=== PATIENT | female | born 1945 | race Caucasian/White ===

== ENCOUNTER 2017-05-20 21:32 | Emergency (ER) | payer MEDICARE, MEDICAID ==
[~2017-05-20] VITALS: Ht 170.2 cm; Wt 99.3 kg
[~2017-05-20 21:32] MED LIST: ALBU18HF2 IH; ASPI-1265 PO; BACL10TA PO; CLOP75TA35 PO; DOCU250C4 PO; FAMO40TA7 PO; FURO-150 PO; HYDR-3972 PO; HYDR-569 PO; METO25TA6 PO; MONT5TAB17 PO; MORP-64 PO; POLY119P2 PO; POTA10TA19 PO; PRAV40TA3 PO; TRAZ-143 PO
[2017-05-20] MEDS ORDERED: LORazepam 2 mg/ml vial IV ONE (21:45)
[2017-05-20 21:56] LABS: BASOPHILS # (AUTO) 0.1 X10'3 (0-0.2); BASOPHILS % (AUTO) 0.7 % (0-1); EOSINOPHILS # (AUTO) 0.6 X10'3 (0-0.9); EOSINOPHILS % (AUTO) 4.9 % (0-6); HEMATOCRIT 36.6 % (35.0-45.0); LYMPHOCYTES # (AUTO) 3.4 X10'3 (1.1-4.8); LYMPHOCYTES % (AUTO) 30.4 % (21-51); MEAN CORPUSCULAR HEMOGLOBIN 28.3 PG (27.0-31.0); MEAN CORPUSCULAR HGB CONC 32.9 % (33.0-36.5); MEAN CORPUSCULAR VOLUME 86.2 FL (78-98); MEAN PLATELET VOLUME 7.2 FL (7.4-10.4); MONOCYTES % (AUTO) 9.1 % (2-12); NEUTROPHILS # (AUTO) 6.2 X10'3 (1.8-7.7); NEUTROPHILS % (AUTO) 54.9 % (42-75); PLATELET COUNT 422 X10'3 (140-440); RED BLOOD COUNT 4.25 X10'6 (4.20-5.60); RED CELL DISTRIBUTION WIDTH 15.5 % (11.5-14.5); WHITE BLOOD COUNT 11.3 X10'3 (4.5-11.0)
[2017-05-20 22:07] LABS: PARTIAL THROMBOPLASTIN TIME 25 SECONDS (22-32); PROTHROMBIN TIME 10.1 SECONDS (9.0-12.0)
[2017-05-20 22:18] LABS: ALANINE AMINOTRANSFERASE 29 U/L (12-78); ALBUMIN 3.3 G/DL (3.4-5.0); ALBUMIN/GLOBULIN RATIO 0.8 (1.1-1.5); ALKALINE PHOSPHATASE 68 IU/L (46-116); ANION GAP 7 (8-16); ASPARTATE AMINO TRANSFERASE 29 U/L (10-37); BILIRUBIN,TOTAL 0.4 MG/DL (0.1-1.0); BLOOD UREA NITROGEN 16 MG/DL (7-18); BUN/CREATININE RATIO 18.6 (6.6-38.0); CALCIUM 9.1 MG/DL (8.5-10.1); CHLORIDE 103 MMOL/L (99-107); CREATININE 0.86 MG/DL (0.40-0.90); GLUCOSE 97 MG/DL (70-104); MAGNESIUM 1.8 MG/DL (1.5-2.4); POTASSIUM 3.8 MMOL/L (3.5-5.1); SODIUM 143 MMOL/L (135-145); TOTAL CARBON DIOXIDE 33.1 MMOL/L (24-32); TOTAL PROTEIN 7.5 G/DL (6.4-8.2); eGFR 65 ML/MIN
[2017-05-20] MEDS ORDERED: levoFLOXACIN 500mg tablet PO ONE (22:30)
[2017-05-20] MEDS ORDERED: LEVO750T21 PO (22:32)
[2017-05-20 22:48] VITALS: BP 148/74
== END 2017-05-20 22:49 | disposition home or self-care (01) ==
LOC: ER 21:32
DX: J06.9 Acute upper respiratory infection, unspecified (principal); I48.91 Unspecified atrial fibrillation; I50.9 Heart failure, unspecified; E78.00 Pure hypercholesterolemia, unspecified; G89.29 Other chronic pain; J44.9 Chronic obstructive pulmonary disease, unspecified; Z90.49 Acquired absence of other specified parts of digestive tract; Z90.710 Acquired absence of both cervix and uterus; Z98.62 Peripheral vascular angioplasty status; Z88.0 Allergy status to penicillin; Z88.1 Allergy status to other antibiotic agents; Z79.82 Long term (current) use of aspirin; Z79.899 Other long term (current) drug therapy
CPT/HCPCS: 36415; 71046; 80053; 83735; 83880; 84484; 85025; 85610; 85730; 93005; 96374; 99285; J2060; 99284

== ENCOUNTER 2017-06-24 16:14 | Inpatient (IN) | payer MEDICARE, MEDICAID ==
[~2017-06-24] VITALS: Ht 170.2 cm; Wt 99.1 kg
[2017-06-24 16:51] LABS: BASOPHILS % (AUTO) 0.3 % (0-1); EOSINOPHILS % (AUTO) 0.1 % (0-6); HEMATOCRIT 37.6 % (35.0-45.0); HEMOGLOBIN 12.4 g/dl (12.0-16.0); LYMPHOCYTES # (AUTO) 0.9 X10'3 (1.1-4.8); LYMPHOCYTES % (AUTO) 7.6 % (21-51); MEAN CORPUSCULAR HEMOGLOBIN 27.9 PG (27.0-31.0); MEAN CORPUSCULAR HGB CONC 32.9 % (33.0-36.5); MEAN CORPUSCULAR VOLUME 84.7 FL (78-98); MEAN PLATELET VOLUME 6.7 FL (7.4-10.4); MONOCYTES # (AUTO) 0.5 X10'3 (0-0.9); MONOCYTES % (AUTO) 3.8 % (2-12); NEUTROPHILS % (AUTO) 88.2 % (42-75); PLATELET COUNT 542 X10'3 (140-440); RED BLOOD COUNT 4.44 X10'6 (4.20-5.60); RED CELL DISTRIBUTION WIDTH 15.4 % (11.5-14.5); WHITE BLOOD COUNT 12.4 X10'3 (4.5-11.0)
[2017-06-24 17:05] LABS: PARTIAL THROMBOPLASTIN TIME 24 SECONDS (22-32); PROTHROMBIN TIME 10.7 SECONDS (9.0-12.0)
[2017-06-24] MEDS ORDERED: verapamil 2.5 mg/ml inj IV ONE ×2 (17:05→17:40)
[2017-06-24 17:06] LABS: ALANINE AMINOTRANSFERASE 32 U/L (12-78); ALBUMIN 3.2 G/DL (3.4-5.0); ALBUMIN/GLOBULIN RATIO 0.8 (1.1-1.5); ALKALINE PHOSPHATASE 73 IU/L (46-116); ANION GAP 9 (8-16); ASPARTATE AMINO TRANSFERASE 20 U/L (10-37); BILIRUBIN,TOTAL 0.6 MG/DL (0.1-1.0); BLOOD UREA NITROGEN 16 MG/DL (7-18); BUN/CREATININE RATIO 15.7 (6.6-38.0); CHLORIDE 104 MMOL/L (99-107); CREATININE 1.02 MG/DL (0.40-0.90); GLUCOSE 145 MG/DL (70-104); POTASSIUM 3.5 MMOL/L (3.5-5.1); SODIUM 144 MMOL/L (135-145); TOTAL CARBON DIOXIDE 30.8 MMOL/L (24-32); TOTAL PROTEIN 7.4 G/DL (6.4-8.2); eGFR 53 ML/MIN
[2017-06-24] MEDS ORDERED: furosemide 10 MG/1 ML 10ml inj IV ONE (17:30)
[2017-06-24] MEDS ORDERED: LORazepam 2 mg/ml vial IV ONE ×2 (17:30→18:50)
[2017-06-24 19:13] LABS: D-DIMER 0.42 MG/L FEU (0-0.50)
[2017-06-24] MEDS ORDERED: HYDROcodone/acetaminophen 10/325mg tab PO ONE (19:20)
[2017-06-24] MEDS ORDERED: ondansetron/PF 4mg/2ml inj IV PRN (20:20)
[2017-06-24] MEDS ORDERED: acetaminophen 325mg tablet PO PRN (20:20)
[2017-06-24] MEDS ORDERED: docusate sod 250mg capsule PO PRN (20:25)
[2017-06-24] MEDS ORDERED: MONTELUKAST SODIUM 5 MG PO SCH (21:00)
[2017-06-24] MEDS: HYDROcodone/acetaminophen 10/325mg tab PO SCH (21:00)
[2017-06-24] MEDS: morphine ER 15mg tablet PO SCH (21:50)
[2017-06-24] MEDS: traZODone 50mg tablet PO SCH (21:51)
[2017-06-24] MEDS: montelukast 10mg tablet PO SCH (21:58)
[2017-06-24] MEDS: levalbuterol 0.63mg/3ml nebule IH SCH (21:58)
[2017-06-25] MEDS: levalbuterol 0.63mg/3ml nebule IH SCH ×3 (03:00→14:53)
[2017-06-25 04:47] LABS: BASOPHILS # (AUTO) 0.1 X10'3 (0-0.2); BASOPHILS % (AUTO) 0.8 % (0-1); EOSINOPHILS # (AUTO) 0.2 X10'3 (0-0.9); EOSINOPHILS % (AUTO) 1.7 % (0-6); HEMATOCRIT 36.8 % (35.0-45.0); HEMOGLOBIN 12.1 g/dl (12.0-16.0); LYMPHOCYTES # (AUTO) 4.9 X10'3 (1.1-4.8); MEAN CORPUSCULAR HEMOGLOBIN 27.8 PG (27.0-31.0); MEAN CORPUSCULAR HGB CONC 32.8 % (33.0-36.5); MEAN CORPUSCULAR VOLUME 84.8 FL (78-98); MEAN PLATELET VOLUME 6.7 FL (7.4-10.4); MONOCYTES # (AUTO) 1.1 X10'3 (0-0.9); MONOCYTES % (AUTO) 8.6 % (2-12); NEUTROPHILS # (AUTO) 6.9 X10'3 (1.8-7.7); NEUTROPHILS % (AUTO) 51.9 % (42-75); PLATELET COUNT 494 X10'3 (140-440); RED BLOOD COUNT 4.34 X10'6 (4.20-5.60); RED CELL DISTRIBUTION WIDTH 15.1 % (11.5-14.5); WHITE BLOOD COUNT 13.4 X10'3 (4.5-11.0)
[2017-06-25 05:07] LABS: ALBUMIN 3.1 G/DL (3.4-5.0); ANION GAP 7 (8-16); BLOOD UREA NITROGEN 17 MG/DL (7-18); BUN/CREATININE RATIO 17.7 (6.6-38.0); CALCIUM 8.8 MG/DL (8.5-10.1); CHLORIDE 106 MMOL/L (99-107); CREATININE 0.96 MG/DL (0.40-0.90); GLUCOSE 90 MG/DL (70-104); POTASSIUM 3.3 MMOL/L (3.5-5.1); SODIUM 146 MMOL/L (135-145); TOTAL CARBON DIOXIDE 33.3 MMOL/L (24-32); eGFR 57 ML/MIN
[2017-06-25] MEDS: HYDROcodone/acetaminophen 10/325mg tab PO SCH ×4 (05:10→20:46)
[2017-06-25 05:41] LABS: CLARITY,URINE SLIGHTLY CLOUDY (Clear); COLOR,URINE YELLOW (Yellow); GLUCOSE, URINE NEGATIVE (Neg); KETONES,URINE NEGATIVE (Neg); LEUKOCYTE ESTERASE ,URINE NEGATIVE (Neg); NITRITES, URINE NEGATIVE (Neg); OCCULT BLOOD,URINE NEGATIVE (Neg); PROTEIN,URINE NEGATIVE (Neg); UROBILINOGEN,URINE 0.2 E.U/dL (0.2-1.0)
[2017-06-25 05:48] LABS: UA COLLECTION TYPE CLN CATCH MIDSTREAM
[2017-06-25 05:55] LABS: BACTERIA,URINE NONE SEEN /HPF (Neg); HYALINE CASTS 0-3 /LPF (NEGATIVE); MUCUS STRANDS FEW /LPF (Neg); RBC,URINE 0-2 /HPF (0-2); SQUAMOUS EPITHELIAL CELL,UR MODERATE /LPF (FEW); WBC,URINE 0-4 /HPF (0-4)
[2017-06-25] MEDS: budesonide 0.5mg/2ml UD nebule IH SCH ×2 (06:53→20:48)
[2017-06-25] MEDS: furosemide 20 MG/2 ML vial IV SCH (07:30)
[2017-06-25] MEDS: heparin, porcine 5000 units/ml vial SQ SCH ×2 (07:30→20:44)
[2017-06-25] MEDS: morphine ER 15mg tablet PO SCH ×2 (07:31→20:44)
[2017-06-25] MEDS: clopidogrel 75mg tablet PO SCH (07:32)
[2017-06-25] MEDS: metoprolol tartrate 12.5mg (1/2 tablet) PO SCH ×2 (07:32→20:44)
[2017-06-25] MEDS: aspirin 81mg tab.chew PO SCH (07:32)
[2017-06-25] MEDS: famotidine 20mg tablet PO SCH (07:32)
[2017-06-25] MEDS ORDERED: FAMOTIDINE PO SCH (08:00)
[2017-06-25] MEDS ORDERED: morphine ER 15mg tablet PO SCH (08:00)
[2017-06-25] MEDS: pravastatin 40mg tablet PO SCH (09:01)
[2017-06-25] MEDS ORDERED: potassium Cl 20 mEq SR tablet PO PRN (09:05)
[2017-06-25] MEDS ORDERED: magnesium Cl slow-release 64mg tablet PO PRN (09:05)
[2017-06-25] MEDS ORDERED: magnesium 2GM in 50ml NS 50 ML IV PRN (09:05)
[2017-06-25] MEDS ORDERED: magnesium 4gm in 100ml NS 100 ML IV PRN (09:05)
[2017-06-25] MEDS ORDERED: potassium Cl 40MEQ/NS 500ml 500 ML IV PRN ×2 (09:05)
[2017-06-25] MEDS: LORazepam 1 MG tablet PO PRN ×2 (09:13→18:33)
[2017-06-25] MEDS: potassium Cl 20 mEq SR tablet PO PRN ×3 (09:13→17:34)
[2017-06-25] MEDS ORDERED: albuterol 2.5 MG/3 ML nebule NEB PRN (13:00)
[2017-06-25] MEDS: methylPREDNISolone sod succ 125mg/2ml vial IV SCH ×3 (13:13→20:44)
[2017-06-25 14:51] VITALS: BP 131/74
[2017-06-25 19:00] VITALS: BP 106/57
[2017-06-25] MEDS: montelukast 10mg tablet PO SCH (20:43)
[2017-06-25] MEDS: traZODone 50mg tablet PO SCH (20:44)
[2017-06-25] MEDS: levalbuterol 1.25mg/0.5ml nebule IH SCH (20:49)
[2017-06-26 00:02] VITALS: BP 117/68
[2017-06-26] MEDS: LORazepam 1 MG tablet PO PRN (00:18)
[2017-06-26] MEDS: methylPREDNISolone sod succ 125mg/2ml vial IV SCH ×4 (01:58→19:27)
[2017-06-26] MEDS: levalbuterol 1.25mg/0.5ml nebule IH SCH ×4 (02:23→19:54)
[2017-06-26 06:01] LABS: BASOPHILS % (AUTO) 0.1 % (0-1); EOSINOPHILS % (AUTO) 0.8 % (0-6); HEMATOCRIT 37.7 % (35.0-45.0); HEMOGLOBIN 12.3 g/dl (12.0-16.0); LYMPHOCYTES # (AUTO) 0.7 X10'3 (1.1-4.8); LYMPHOCYTES % (AUTO) 12.1 % (21-51); MEAN CORPUSCULAR HEMOGLOBIN 27.9 PG (27.0-31.0); MEAN CORPUSCULAR HGB CONC 32.6 % (33.0-36.5); MEAN CORPUSCULAR VOLUME 85.6 FL (78-98); MEAN PLATELET VOLUME 7.1 FL (7.4-10.4); MONOCYTES % (AUTO) 0.6 % (2-12); NEUTROPHILS # (AUTO) 5.2 X10'3 (1.8-7.7); NEUTROPHILS % (AUTO) 86.4 % (42-75); PLATELET COUNT 512 X10'3 (140-440); RED BLOOD COUNT 4.41 X10'6 (4.20-5.60)
[2017-06-26 06:04] LABS: ANION GAP 4 (8-16); BLOOD UREA NITROGEN 15 MG/DL (7-18); BUN/CREATININE RATIO 16.1 (6.6-38.0); CALCIUM 9.8 MG/DL (8.5-10.1); CHLORIDE 104 MMOL/L (99-107); CREATININE 0.93 MG/DL (0.40-0.90); GLUCOSE 135 MG/DL (70-104); MAGNESIUM 2.2 MG/DL (1.5-2.4); POTASSIUM 5.2 MMOL/L (3.5-5.1); SODIUM 142 MMOL/L (135-145); TOTAL CARBON DIOXIDE 33.7 MMOL/L (24-32); eGFR 59 ML/MIN
[2017-06-26 07:52] VITALS: BP 129/75
[2017-06-26] MEDS: furosemide 20 MG/2 ML vial IV SCH (08:44)
[2017-06-26] MEDS: aspirin 81mg tab.chew PO SCH (08:45)
[2017-06-26] MEDS: metoprolol tartrate 12.5mg (1/2 tablet) PO SCH ×2 (08:45→19:27)
[2017-06-26] MEDS: budesonide 0.5mg/2ml UD nebule IH SCH ×2 (08:46→19:55)
[2017-06-26] MEDS: famotidine 20mg tablet PO SCH (08:46)
[2017-06-26] MEDS: morphine ER 15mg tablet PO SCH ×2 (08:46→19:27)
[2017-06-26] MEDS: clopidogrel 75mg tablet PO SCH (08:46)
[2017-06-26] MEDS: HYDROcodone/acetaminophen 10/325mg tab PO SCH ×3 (08:46→21:50)
[2017-06-26] MEDS: heparin, porcine 5000 units/ml vial SQ SCH ×2 (08:47→19:29)
[2017-06-26] MEDS: pravastatin 40mg tablet PO SCH (08:47)
[2017-06-26] MEDS ORDERED: FLU VACC QS2017-18 36MOS UP/PF 60 MCG/0.5 ML SYRINGE IMVAC ONE (10:00)
[2017-06-26 11:54] VITALS: BP 110/57
[2017-06-26 19:00] VITALS: BP 121/62
[2017-06-26] MEDS: traZODone 50mg tablet PO SCH (21:50)
[2017-06-26] MEDS: montelukast 10mg tablet PO SCH (21:51)
[2017-06-27] VITALS: BP 95/50
[2017-06-27] MEDS: methylPREDNISolone sod succ 125mg/2ml vial IV SCH ×3 (01:23→13:20)
[2017-06-27] MEDS: levalbuterol 1.25mg/0.5ml nebule IH SCH ×2 (02:12→08:25)
[2017-06-27 06:26] LABS: BASOPHILS % (AUTO) 0 % (0-1); EOSINOPHILS # (AUTO) 0.2 X10'3 (0-0.9); EOSINOPHILS % (AUTO) 1.7 % (0-6); HEMATOCRIT 37.3 % (35.0-45.0); HEMOGLOBIN 12.2 g/dl (12.0-16.0); LYMPHOCYTES # (AUTO) 0.6 X10'3 (1.1-4.8); LYMPHOCYTES % (AUTO) 6.7 % (21-51); MEAN CORPUSCULAR HEMOGLOBIN 28.1 PG (27.0-31.0); MEAN CORPUSCULAR HGB CONC 32.8 % (33.0-36.5); MEAN CORPUSCULAR VOLUME 85.6 FL (78-98); MONOCYTES # (AUTO) 0.2 X10'3 (0-0.9); NEUTROPHILS # (AUTO) 8.5 X10'3 (1.8-7.7); NEUTROPHILS % (AUTO) 89.6 % (42-75); PLATELET COUNT 495 X10'3 (140-440); RED BLOOD COUNT 4.36 X10'6 (4.20-5.60); RED CELL DISTRIBUTION WIDTH 15.1 % (11.5-14.5); WHITE BLOOD COUNT 9.4 X10'3 (4.5-11.0)
[2017-06-27 06:52] LABS: ALBUMIN 3.1 G/DL (3.4-5.0); ANION GAP 8 (8-16); BLOOD UREA NITROGEN 25 MG/DL (7-18); BUN/CREATININE RATIO 23.4 (6.6-38.0); CALCIUM 9.9 MG/DL (8.5-10.1); CHLORIDE 99 MMOL/L (99-107); CREATININE 1.07 MG/DL (0.40-0.90); GLUCOSE 139 MG/DL (70-104); MAGNESIUM 2.1 MG/DL (1.5-2.4); POTASSIUM 4.3 MMOL/L (3.5-5.1); SODIUM 138 MMOL/L (135-145); TOTAL CARBON DIOXIDE 31.1 MMOL/L (24-32); eGFR 51 ML/MIN
[2017-06-27 07:13] VITALS: BP 107/74
[2017-06-27] MEDS: furosemide 20 MG/2 ML vial IV SCH (07:31)
[2017-06-27] MEDS: HYDROcodone/acetaminophen 10/325mg tab PO SCH ×2 (07:32→13:20)
[2017-06-27] MEDS: metoprolol tartrate 12.5mg (1/2 tablet) PO SCH (07:32)
[2017-06-27] MEDS: morphine ER 15mg tablet PO SCH (07:32)
[2017-06-27] MEDS: clopidogrel 75mg tablet PO SCH (07:32)
[2017-06-27] MEDS: pravastatin 40mg tablet PO SCH (07:32)
[2017-06-27] MEDS: aspirin 81mg tab.chew PO SCH (07:32)
[2017-06-27] MEDS: heparin, porcine 5000 units/ml vial SQ SCH (07:32)
[2017-06-27] MEDS: famotidine 20mg tablet PO SCH (08:00)
[2017-06-27] MEDS: budesonide 0.5mg/2ml UD nebule IH SCH (08:25)
[2017-06-27 11:55] VITALS: BP 128/61
[2017-06-27] MEDS ORDERED: PRED10TA23 PO (12:48)
[2017-06-27] MEDS ORDERED: famotidine 20mg tablet PO ONE (21:00)
== END 2017-06-27 15:54 | disposition home or self-care (01) | DRG 189 ==
LOC: ER 16:18 → ED HOLD 22:31 → EDBEDREQ 06-25 13:15 → MED 3N 06-25 14:39
PROVIDERS: ADMIT Family Medicine; ATTEND Internal Medicine
PROC: 5A09357 Assistance with Respiratory Ventilation, Less than 24 Consecutive Hours, Continuous Positive Airway Pressure (ICD-10-PCS; 2017-06-24)
PROC: 3E0234Z Introduction of Serum, Toxoid and Vaccine into Muscle, Percutaneous Approach (ICD-10-PCS; principal; 2017-06-26)
DX: J96.21 Acute and chronic respiratory failure with hypoxia (principal); I27.20 Pulmonary hypertension, unspecified; I48.91 Unspecified atrial fibrillation; J44.1 Chronic obstructive pulmonary disease with (acute) exacerbation; J98.11 Atelectasis; I50.9 Heart failure, unspecified; E87.6 Hypokalemia; I37.0 Nonrheumatic pulmonary valve stenosis; E78.00 Pure hypercholesterolemia, unspecified; E78.5 Hyperlipidemia, unspecified; F41.9 Anxiety disorder, unspecified; I73.9 Peripheral vascular disease, unspecified; K21.9 Gastro-esophageal reflux disease without esophagitis; Z90.3 Acquired absence of stomach [part of]; Z90.710 Acquired absence of both cervix and uterus; Z90.81 Acquired absence of spleen; Z79.01 Long term (current) use of anticoagulants; Z88.0 Allergy status to penicillin; Z88.1 Allergy status to other antibiotic agents; Z87.891 Personal history of nicotine dependence; Z82.0 Family history of epilepsy and other diseases of the nervous system; Z23 Encounter for immunization
CPT/HCPCS: 36415; 71045; 71250; 80048; 80053; 81001; 83605; 83735; 83880; 84145; 84484; 85025; 85379; 85610; 85730; 87040; 87070; 93005; 93306; 94640; 94660; 94760; 96374; 99285; J1644; J1940; J2060; J2930; J7614; J7626

== ENCOUNTER 2017-07-10 11:45 | Inpatient (IN) | payer MEDICARE, MEDICAID ==
[~2017-07-10] VITALS: Ht 170.2 cm; Wt 70.8 kg
[~2017-07-10 11:45] MED LIST changes: -HYDR-569 PO; +PRED10TA23 PO
[2017-07-10] MEDS ORDERED: aspirin 81mg tab.chew PO ONE (11:50)
[2017-07-10] MEDS ORDERED: verapamil 2.5 mg/ml inj IV ONE (11:50)
[2017-07-10 12:15] LABS: BASOPHILS % (AUTO) 0.1 % (0-1); EOSINOPHILS # (AUTO) 0.1 X10'3 (0-0.9); EOSINOPHILS % (AUTO) 0.7 % (0-6); HEMATOCRIT 41.5 % (35.0-45.0); HEMOGLOBIN 13.5 g/dl (12.0-16.0); LYMPHOCYTES # (AUTO) 0.8 X10'3 (1.1-4.8); LYMPHOCYTES % (AUTO) 7.1 % (21-51); MEAN CORPUSCULAR HEMOGLOBIN 27.7 PG (27.0-31.0); MEAN CORPUSCULAR HGB CONC 32.5 % (33.0-36.5); MEAN CORPUSCULAR VOLUME 85.3 FL (78-98); MEAN PLATELET VOLUME 6.8 FL (7.4-10.4); MONOCYTES # (AUTO) 0.3 X10'3 (0-0.9); MONOCYTES % (AUTO) 2.3 % (2-12); NEUTROPHILS # (AUTO) 10.4 X10'3 (1.8-7.7); NEUTROPHILS % (AUTO) 89.8 % (42-75); PLATELET COUNT 478 X10'3 (140-440); RED BLOOD COUNT 4.86 X10'6 (4.20-5.60); RED CELL DISTRIBUTION WIDTH 15.8 % (11.5-14.5); WHITE BLOOD COUNT 11.6 X10'3 (4.5-11.0)
[2017-07-10] MEDS ORDERED: LORazepam 2 mg/ml vial IV ONE ×2 (12:15→14:20)
[2017-07-10] MEDS ORDERED: normal saline 1000ml 1,000 ML IV ONE (12:15)
[2017-07-10 12:23] LABS: PROTHROMBIN TIME 10.3 SECONDS (9.0-12.0)
[2017-07-10] MEDS: metoprolol tartrate 1mg/ml inj IV SCH ×5 (12:26→13:28)
[2017-07-10 12:36] LABS: ALANINE AMINOTRANSFERASE 39 U/L (12-78); ALBUMIN 3.3 G/DL (3.4-5.0); ALBUMIN/GLOBULIN RATIO 0.8 (1.1-1.5); ALKALINE PHOSPHATASE 68 IU/L (46-116); ANION GAP 11 (8-16); ASPARTATE AMINO TRANSFERASE 28 U/L (10-37); BILIRUBIN,TOTAL 0.8 MG/DL (0.1-1.0); BLOOD UREA NITROGEN 19 MG/DL (7-18); BUN/CREATININE RATIO 17.1 (6.6-38.0); CALCIUM 9.4 MG/DL (8.5-10.1); CHLORIDE 100 MMOL/L (99-107); CREATININE 1.11 MG/DL (0.40-0.90); GLUCOSE 130 MG/DL (70-104); MAGNESIUM 1.8 MG/DL (1.5-2.4); POTASSIUM 3.6 MMOL/L (3.5-5.1); SODIUM 144 MMOL/L (135-145); TOTAL CARBON DIOXIDE 32.6 MMOL/L (24-32); TOTAL PROTEIN 7.3 G/DL (6.4-8.2); eGFR 48 ML/MIN
[2017-07-10] MEDS ORDERED: diltiazem-D5W 100mg/100ml 100 ML IV ONE (14:10)
[2017-07-10] MEDS ORDERED: acetaminophen 325mg tablet PO PRN (14:15)
[2017-07-10] MEDS ORDERED: ondansetron/PF 4mg/2ml inj IV PRN (14:15)
[2017-07-10] MEDS ORDERED: HYDROcodone/acetaminophen 5mg/325mg tablet PO PRN (14:15)
[2017-07-10] MEDS ORDERED: mag hydrox/Alum hydrox/simeth 30ml oral suspension PO PRN (14:15)
[2017-07-10] MEDS ORDERED: magnesium hydroxide 30ml (MOM) UD suspension PO PRN (14:15)
[2017-07-10] MEDS ORDERED: morphine 4 MG/ML inj SYRINge IV PRN (14:15)
[2017-07-10] MEDS ORDERED: baclofen 10mg tablet PO PRN (14:20)
[2017-07-10] MEDS ORDERED: docusate sod 250mg capsule PO PRN (14:20)
[2017-07-10] MEDS ORDERED: albuterol 2.5 MG/3 ML nebule NEB PRN (14:30)
[2017-07-10] MEDS: normal saline 1000ml 1,000 ML IV SCH ×2 (15:00→19:55)
[2017-07-10] MEDS ORDERED: methylPREDNISolone sod succ 125mg/2ml vial IV ONE (15:15)
[2017-07-10] MEDS ORDERED: CefTRIAXone/D5W-Rocephin 1gm 50 ML IV SCH (15:20)
[2017-07-10] MEDS ORDERED: iohexol 350MG/ML 100ml bottle IV ONE (15:49)
[2017-07-10 17:20] VITALS: BP 126/66
[2017-07-10 18:00] VITALS: BP 126/66
[2017-07-10 18:10] LABS: D-DIMER 0.41 MG/L FEU (0-0.50)
[2017-07-10 19:00] VITALS: BP 101/55
[2017-07-10] MEDS: metoprolol tartrate 25mg tablet PO SCH (19:35)
[2017-07-10] MEDS: potassium Cl 20 mEq SR tablet PO SCH (19:35)
[2017-07-10] MEDS: docusate sod 100mg capsule PO SCH (19:35)
[2017-07-10] MEDS: heparin, porcine 5000 units/ml vial SQ SCH (19:36)
[2017-07-10] MEDS: morphine ER 15mg tablet PO SCH (19:36)
[2017-07-10] MEDS: ipratropium/albuterol 3ml nebule NEB SCH ×2 (19:40→23:00)
[2017-07-10 21:00] VITALS: BP 112/52
[2017-07-10] MEDS ORDERED: HYDROcodone/acetaminophen 10/325mg tab PO SCH (21:00)
[2017-07-10] MEDS ORDERED: methylPREDNISolone sod succ 125mg/2ml vial IV SCH (21:00)
[2017-07-10] MEDS: montelukast 10mg tablet PO SCH (21:15)
[2017-07-10] MEDS: traZODone 50mg tablet PO SCH (21:16)
[2017-07-10 22:00] VITALS: BP 117/51
[2017-07-10 23:00] VITALS: BP 105/93
[2017-07-11] VITALS (12 sets, daily range): BP systolic 93–142; BP diastolic 45–108
[2017-07-11] MEDS: ipratropium/albuterol 3ml nebule NEB SCH ×7 (03:00→23:35)
[2017-07-11 05:11] LABS: BASOPHILS % (AUTO) 0.1 % (0-1); EOSINOPHILS # (AUTO) 0.2 X10'3 (0-0.9); EOSINOPHILS % (AUTO) 1.8 % (0-6); HEMATOCRIT 38.4 % (35.0-45.0); HEMOGLOBIN 12.6 g/dl (12.0-16.0); LYMPHOCYTES # (AUTO) 0.5 X10'3 (1.1-4.8); LYMPHOCYTES % (AUTO) 5.1 % (21-51); MEAN CORPUSCULAR HEMOGLOBIN 27.8 PG (27.0-31.0); MEAN CORPUSCULAR HGB CONC 32.7 % (33.0-36.5); MEAN CORPUSCULAR VOLUME 84.9 FL (78-98); MEAN PLATELET VOLUME 7.1 FL (7.4-10.4); MONOCYTES # (AUTO) 0.3 X10'3 (0-0.9); MONOCYTES % (AUTO) 2.9 % (2-12); NEUTROPHILS # (AUTO) 8.7 X10'3 (1.8-7.7); NEUTROPHILS % (AUTO) 90.1 % (42-75); PLATELET COUNT 457 X10'3 (140-440); RED BLOOD COUNT 4.53 X10'6 (4.20-5.60); RED CELL DISTRIBUTION WIDTH 16.1 % (11.5-14.5); WHITE BLOOD COUNT 9.6 X10'3 (4.5-11.0)
[2017-07-11 05:14] LABS: PROTHROMBIN TIME 10.8 SECONDS (9.0-12.0)
[2017-07-11 05:22] LABS: ALBUMIN 2.9 G/DL (3.4-5.0); ANION GAP 12 (8-16); BLOOD UREA NITROGEN 25 MG/DL (7-18); BUN/CREATININE RATIO 19.4 (6.6-38.0); CALCIUM 9.5 MG/DL (8.5-10.1); CHLORIDE 102 MMOL/L (99-107); CREATININE 1.29 MG/DL (0.40-0.90); GLUCOSE 147 MG/DL (70-104); MAGNESIUM 2.1 MG/DL (1.5-2.4); POTASSIUM 3.7 MMOL/L (3.5-5.1); SODIUM 144 MMOL/L (135-145); TOTAL CARBON DIOXIDE 29.8 MMOL/L (24-32); eGFR 41 ML/MIN
[2017-07-11] MEDS ORDERED: furosemide 20MG tablet PO SCH (08:00)
[2017-07-11] MEDS: polyethylene glycol 3350 17gm powd pack PO SCH (08:00)
[2017-07-11] MEDS ORDERED: famotidine 20mg tablet PO SCH (08:00)
[2017-07-11] MEDS: docusate sod 100mg capsule PO SCH (08:00)
[2017-07-11] MEDS ORDERED: aspirin 81mg tab.chew PO SCH (08:00)
[2017-07-11] MEDS: pantoprazole 40 MG vial IV SCH (08:43)
[2017-07-11] MEDS: azithromycin/NS 500mg/250ml 250 ML IV SCH (08:54)
[2017-07-11] MEDS: potassium Cl 20 mEq SR tablet PO SCH ×2 (08:56→19:44)
[2017-07-11] MEDS: metoprolol tartrate 25mg tablet PO SCH ×2 (08:57→19:44)
[2017-07-11] MEDS: clopidogrel 75mg tablet PO SCH (08:59)
[2017-07-11] MEDS: morphine ER 15mg tablet PO SCH (08:59)
[2017-07-11] MEDS: heparin, porcine 5000 units/ml vial SQ SCH ×2 (09:00→19:45)
[2017-07-11] MEDS: normal saline 1000ml 1,000 ML IV SCH (09:04)
[2017-07-11] MEDS: methylPREDNISolone sod succ 125mg/2ml vial IV SCH (09:06)
[2017-07-11] MEDS: HYDROcodone/acetaminophen 10/325mg tab PO PRN ×3 (09:09→18:30)
[2017-07-11] MEDS: pravastatin 40mg tablet PO SCH (10:14)
[2017-07-11] MEDS ORDERED: diltiazem-D5W 100mg/100ml 100 ML IV SCH (10:45)
[2017-07-11] MEDS ORDERED: docusate sod 100mg capsule PO PRN (10:45)
[2017-07-11] MEDS ORDERED: loperamide 2mg capsule PO ONE (11:00)
[2017-07-11] MEDS: lactobacillus rhamnosus 10,000 MMU CELLS/CAPSULE PO SCH (19:44)
[2017-07-11] MEDS: montelukast 10mg tablet PO SCH (21:25)
[2017-07-11] MEDS: traZODone 50mg tablet PO SCH (21:25)
[2017-07-11] MEDS: LORazepam 0.5 MG tablet PO PRN (21:28)
[2017-07-12] VITALS (10 sets, daily range): BP systolic 91–136; BP diastolic 39–76
[2017-07-12] MEDS: ipratropium/albuterol 3ml nebule NEB SCH ×6 (02:57→23:06)
[2017-07-12] MEDS: potassium Cl 20 mEq SR tablet PO SCH ×2 (07:18→19:31)
[2017-07-12] MEDS: heparin, porcine 5000 units/ml vial SQ SCH ×2 (07:18→19:35)
[2017-07-12] MEDS: methylPREDNISolone sod succ 125mg/2ml vial IV SCH ×2 (07:18→19:30)
[2017-07-12] MEDS: metoprolol tartrate 25mg tablet PO SCH ×2 (07:18→19:30)
[2017-07-12] MEDS: pantoprazole 40 MG vial IV SCH (07:18)
[2017-07-12] MEDS: clopidogrel 75mg tablet PO SCH (07:19)
[2017-07-12] MEDS: lactobacillus rhamnosus 10,000 MMU CELLS/CAPSULE PO SCH ×2 (07:19→19:31)
[2017-07-12] MEDS: pravastatin 40mg tablet PO SCH (07:19)
[2017-07-12] MEDS: HYDROcodone/acetaminophen 10/325mg tab PO PRN ×3 (07:19→19:57)
[2017-07-12] MEDS: azithromycin/NS 500mg/250ml 250 ML IV SCH (07:20)
[2017-07-12] MEDS: polyethylene glycol 3350 17gm powd pack PO SCH (07:29)
[2017-07-12] MEDS: LORazepam 0.5 MG tablet PO PRN ×2 (08:55→17:00)
[2017-07-12 09:00] LABS: BASOPHILS % (AUTO) 0 % (0-1); EOSINOPHILS # (AUTO) 0.2 X10'3 (0-0.9); EOSINOPHILS % (AUTO) 1.2 % (0-6); HEMATOCRIT 35.4 % (35.0-45.0); HEMOGLOBIN 11.5 g/dl (12.0-16.0); LYMPHOCYTES % (AUTO) 7.2 % (21-51); MEAN CORPUSCULAR HEMOGLOBIN 27.7 PG (27.0-31.0); MEAN CORPUSCULAR HGB CONC 32.5 % (33.0-36.5); MEAN CORPUSCULAR VOLUME 85.2 FL (78-98); MEAN PLATELET VOLUME 7.2 FL (7.4-10.4); MONOCYTES # (AUTO) 0.6 X10'3 (0-0.9); MONOCYTES % (AUTO) 4.4 % (2-12); NEUTROPHILS # (AUTO) 11.8 X10'3 (1.8-7.7); NEUTROPHILS % (AUTO) 87.2 % (42-75); PLATELET COUNT 405 X10'3 (140-440); RED BLOOD COUNT 4.16 X10'6 (4.20-5.60); RED CELL DISTRIBUTION WIDTH 15.9 % (11.5-14.5); WHITE BLOOD COUNT 13.5 X10'3 (4.5-11.0)
[2017-07-12 09:19] LABS: ALBUMIN 2.7 G/DL (3.4-5.0); ANION GAP 6 (8-16); BLOOD UREA NITROGEN 27 MG/DL (7-18); BUN/CREATININE RATIO 27.6 (6.6-38.0); CALCIUM 9.2 MG/DL (8.5-10.1); CHLORIDE 102 MMOL/L (99-107); CREATININE 0.98 MG/DL (0.40-0.90); GLUCOSE 184 MG/DL (70-104); POTASSIUM 4.4 MMOL/L (3.5-5.1); SODIUM 139 MMOL/L (135-145); TOTAL CARBON DIOXIDE 31.2 MMOL/L (24-32); eGFR 56 ML/MIN
[2017-07-12] MEDS: diltiazem SR 60mg capsule (twice daily) PO SCH (19:30)
[2017-07-12] MEDS: traZODone 50mg tablet PO SCH (22:09)
[2017-07-12] MEDS: montelukast 10mg tablet PO SCH (22:10)
[2017-07-13] MEDS: LORazepam 0.5 MG tablet PO PRN ×3 (00:26→18:06)
[2017-07-13 02:00] VITALS: BP 132/46
[2017-07-13] MEDS: ipratropium/albuterol 3ml nebule NEB SCH ×6 (03:18→23:00)
[2017-07-13] MEDS: HYDROcodone/acetaminophen 10/325mg tab PO PRN ×3 (03:43→23:45)
[2017-07-13 06:50] VITALS: BP 97/55
[2017-07-13] MEDS ORDERED: normal saline 1000ml 1,000 ML IVB ONE (07:43)
[2017-07-13] MEDS: normal saline 1000ml 1,000 ML IV SCH ×3 (07:43→21:29)
[2017-07-13] MEDS: pravastatin 40mg tablet PO SCH (08:00)
[2017-07-13] MEDS: diltiazem SR 60mg capsule (twice daily) PO SCH ×2 (08:00→21:00)
[2017-07-13] MEDS: metoprolol tartrate 25mg tablet PO SCH ×2 (08:00→11:33)
[2017-07-13] MEDS: potassium Cl 20 mEq SR tablet PO SCH ×2 (08:00→20:00)
[2017-07-13] MEDS: heparin, porcine 5000 units/ml vial SQ SCH ×2 (08:59→21:00)
[2017-07-13] MEDS: methylPREDNISolone sod succ 125mg/2ml vial IV SCH ×2 (09:00→21:02)
[2017-07-13] MEDS: pantoprazole 40 MG vial IV SCH (09:06)
[2017-07-13] MEDS: lactobacillus rhamnosus 10,000 MMU CELLS/CAPSULE PO SCH ×2 (09:07→21:02)
[2017-07-13] MEDS: clopidogrel 75mg tablet PO SCH (09:08)
[2017-07-13] MEDS: azithromycin/NS 500mg/250ml 250 ML IV SCH (09:11)
[2017-07-13 11:00] VITALS: BP 122/65
[2017-07-13 15:00] VITALS: BP 127/70
[2017-07-13 19:00] VITALS: BP 111/91
[2017-07-13] MEDS: traZODone 50mg tablet PO SCH (20:56)
[2017-07-13] MEDS: montelukast 10mg tablet PO SCH (21:01)
[2017-07-13] MEDS: morphine 4 MG/ML inj SYRINge IV PRN (21:23)
[2017-07-13 23:00] VITALS: BP 101/72
[2017-07-14] MEDS ORDERED: digoxin 250mcg/ml 2ml ampule IV ONE (02:40)
[2017-07-14 03:00] VITALS: BP 137/71
[2017-07-14] MEDS: ipratropium/albuterol 3ml nebule NEB SCH ×6 (03:51→23:25)
[2017-07-14 06:30] VITALS: BP 144/56
[2017-07-14] MEDS: potassium Cl 20 mEq SR tablet PO SCH ×2 (08:00→20:57)
[2017-07-14 08:51] LABS: BASOPHILS % (AUTO) 0.1 % (0-1); EOSINOPHILS % (AUTO) 0 % (0-6); HEMATOCRIT 37.1 % (35.0-45.0); LYMPHOCYTES # (AUTO) 0.4 X10'3 (1.1-4.8); LYMPHOCYTES % (AUTO) 4.6 % (21-51); MEAN CORPUSCULAR HEMOGLOBIN 27.5 PG (27.0-31.0); MEAN CORPUSCULAR HGB CONC 32.5 % (33.0-36.5); MEAN CORPUSCULAR VOLUME 84.9 FL (78-98); MEAN PLATELET VOLUME 7.4 FL (7.4-10.4); MONOCYTES # (AUTO) 0.2 X10'3 (0-0.9); NEUTROPHILS # (AUTO) 7.6 X10'3 (1.8-7.7); NEUTROPHILS % (AUTO) 93.3 % (42-75); PLATELET COUNT 446 X10'3 (140-440); RED BLOOD COUNT 4.37 X10'6 (4.20-5.60); RED CELL DISTRIBUTION WIDTH 14.4 % (11.5-14.5); WHITE BLOOD COUNT 8.2 X10'3 (4.5-11.0)
[2017-07-14 08:57] LABS: ALANINE AMINOTRANSFERASE 43 U/L (12-78); ALBUMIN 2.8 G/DL (3.4-5.0); ALBUMIN/GLOBULIN RATIO 0.8 (1.1-1.5); ALKALINE PHOSPHATASE 57 IU/L (46-116); ANION GAP 7 (8-16); ASPARTATE AMINO TRANSFERASE 22 U/L (10-37); BILIRUBIN,TOTAL 0.6 MG/DL (0.1-1.0); BLOOD UREA NITROGEN 25 MG/DL (7-18); CALCIUM 9.3 MG/DL (8.5-10.1); CHLORIDE 104 MMOL/L (99-107); CREATININE 0.96 MG/DL (0.40-0.90); GLUCOSE 196 MG/DL (70-104); POTASSIUM 4.4 MMOL/L (3.5-5.1); SODIUM 141 MMOL/L (135-145); TOTAL CARBON DIOXIDE 30.2 MMOL/L (24-32); TOTAL PROTEIN 6.4 G/DL (6.4-8.2); eGFR 57 ML/MIN
[2017-07-14] MEDS: methylPREDNISolone sod succ 125mg/2ml vial IV SCH ×2 (09:08→20:54)
[2017-07-14] MEDS: azithromycin/NS 500mg/250ml 250 ML IV SCH (09:08)
[2017-07-14] MEDS: diltiazem SR 60mg capsule (twice daily) PO SCH ×2 (09:08→20:56)
[2017-07-14] MEDS: pantoprazole 40 MG vial IV SCH (09:08)
[2017-07-14] MEDS: LORazepam 0.5 MG tablet PO PRN ×2 (09:08→15:47)
[2017-07-14] MEDS: clopidogrel 75mg tablet PO SCH (09:08)
[2017-07-14] MEDS: metoprolol tartrate 25mg tablet PO SCH ×2 (09:09→20:58)
[2017-07-14] MEDS: lactobacillus rhamnosus 10,000 MMU CELLS/CAPSULE PO SCH ×2 (09:10→20:55)
[2017-07-14] MEDS: heparin, porcine 5000 units/ml vial SQ SCH ×2 (09:17→21:00)
[2017-07-14] MEDS: HYDROcodone/acetaminophen 10/325mg tab PO PRN ×3 (09:27→20:56)
[2017-07-14] MEDS: pravastatin 40mg tablet PO SCH (09:31)
[2017-07-14 11:00] VITALS: BP 132/50
[2017-07-14 15:00] VITALS: BP 144/69
[2017-07-14 19:00] VITALS: BP 104/50
[2017-07-14] MEDS: normal saline 1000ml 1,000 ML IV SCH (20:30)
[2017-07-14] MEDS: traZODone 50mg tablet PO SCH (20:58)
[2017-07-14] MEDS: montelukast 10mg tablet PO SCH (20:58)
[2017-07-14 23:00] VITALS: BP 138/53
[2017-07-15] MEDS: morphine 4 MG/ML inj SYRINge IV PRN (02:41)
[2017-07-15 03:00] VITALS: BP 139/68
[2017-07-15] MEDS: ipratropium/albuterol 3ml nebule NEB SCH ×3 (03:24→11:55)
[2017-07-15] MEDS: normal saline 1000ml 1,000 ML IV SCH (03:57)
[2017-07-15] MEDS: HYDROcodone/acetaminophen 10/325mg tab PO PRN ×2 (05:20→11:43)
[2017-07-15] MEDS: LORazepam 0.5 MG tablet PO PRN (05:24)
[2017-07-15 07:00] VITALS: BP 153/62
[2017-07-15] MEDS ORDERED: pantoprazole 40mg Tablet.DR PO SCH (07:30)
[2017-07-15] MEDS ORDERED: azithromycin 250mg tablet PO SCH (08:00)
[2017-07-15] MEDS: lactobacillus rhamnosus 10,000 MMU CELLS/CAPSULE PO SCH (08:07)
[2017-07-15] MEDS: potassium Cl 20 mEq SR tablet PO SCH (08:07)
[2017-07-15] MEDS: metoprolol tartrate 25mg tablet PO SCH (08:07)
[2017-07-15] MEDS: diltiazem SR 60mg capsule (twice daily) PO SCH (08:07)
[2017-07-15] MEDS: clopidogrel 75mg tablet PO SCH (08:07)
[2017-07-15] MEDS: heparin, porcine 5000 units/ml vial SQ SCH (08:09)
[2017-07-15] MEDS: methylPREDNISolone sod succ 125mg/2ml vial IV SCH (08:09)
[2017-07-15] MEDS: pravastatin 40mg tablet PO SCH (08:40)
[2017-07-15 11:00] VITALS: BP_SYST 120; BP_SYST 220; BP_DIAS 52
== END 2017-07-15 19:14 | DRG 308 ==
LOC: ER 11:46 → ED HOLD 14:13 → UNDOADMIN 14:13 → PCU 3S 17:00
PROVIDERS: ADMIT Family Medicine; ATTEND Family Medicine
DX: I48.91 Unspecified atrial fibrillation (principal); I50.33 Acute on chronic diastolic (congestive) heart failure; J44.1 Chronic obstructive pulmonary disease with (acute) exacerbation; E78.00 Pure hypercholesterolemia, unspecified; F41.9 Anxiety disorder, unspecified; G89.29 Other chronic pain; M54.9 Dorsalgia, unspecified; I35.0 Nonrheumatic aortic (valve) stenosis; Z79.01 Long term (current) use of anticoagulants; Z90.710 Acquired absence of both cervix and uterus; Z90.81 Acquired absence of spleen; Z90.49 Acquired absence of other specified parts of digestive tract; Z95.5 Presence of coronary angioplasty implant and graft; Z88.0 Allergy status to penicillin; Z88.1 Allergy status to other antibiotic agents; Z79.82 Long term (current) use of aspirin; Z79.02 Long term (current) use of antithrombotics/antiplatelets; Z79.899 Other long term (current) drug therapy; Z87.11 Personal history of peptic ulcer disease; Z87.891 Personal history of nicotine dependence
CPT/HCPCS: 36415; 71045; 71250; 80048; 80053; 83605; 83735; 83880; 84484; 85025; 85379; 85610; 87040; 87070; 93005; 94640; 94760; 96374; 96375; 97116; 97161; 99285; A4620; A6258; C9113; J0456; J0696; J1160; J1644; J2060; J2270; J2930; J3490; J7030; Q9967

== ENCOUNTER 2017-09-12 19:23 | Emergency (ER) | payer MEDICARE, MEDICAID ==
[~2017-09-12] VITALS: Ht 170.2 cm; Wt 66.8 kg
[~2017-09-12 19:23] MED LIST changes: -ASPI-1265 PO; -BACL10TA PO; +DICL100G15 TOP; -DOCU250C4 PO; -HYDR-3972 PO; +HYDR-3973; +LEVA0.6319 NEB; +META800T87 PO; -MORP-64 PO; +MORP30TA60 PO; +ONDA4TAB12 PO; +PANT40SU2 PO; -PRED10TA23 PO; +PRED5TAB PO; +PROP10TA10 PO
[2017-09-12] MEDS ORDERED: LORazepam 2 mg/ml vial IV ONE (20:05)
[2017-09-12] MEDS ORDERED: ipratropium/albuterol 3ml nebule NEB ONE (20:05)
[2017-09-12] MEDS ORDERED: methylPREDNISolone sod succ 125mg/2ml vial IV ONE (20:05)
[2017-09-12 20:36] LABS: PARTIAL THROMBOPLASTIN TIME 25 SECONDS (22-32)
[2017-09-12 20:42] LABS: ALANINE AMINOTRANSFERASE 18 U/L (12-78); ALBUMIN 2.7 G/DL (3.4-5.0); ALBUMIN/GLOBULIN RATIO 0.7 (1.1-1.5); ALKALINE PHOSPHATASE 71 IU/L (46-116); ANION GAP 4 (8-16); ASPARTATE AMINO TRANSFERASE 15 U/L (10-37); BILIRUBIN,TOTAL 0.3 MG/DL (0.1-1.0); BLOOD UREA NITROGEN 15 MG/DL (7-18); BUN/CREATININE RATIO 17.4 (6.6-38.0); CALCIUM 9.3 MG/DL (8.5-10.1); CHLORIDE 103 MMOL/L (99-107); CREATININE 0.86 MG/DL (0.40-0.90); GLUCOSE 92 MG/DL (70-104); POTASSIUM 3.9 MMOL/L (3.5-5.1); SODIUM 144 MMOL/L (135-145); TOTAL CARBON DIOXIDE 37.4 MMOL/L (24-32); TOTAL PROTEIN 6.5 G/DL (6.4-8.2); eGFR 65 ML/MIN
[2017-09-12 20:46] LABS: EOSINOPHILS # (AUTO) 0.3 X10'3 (0-0.9); MEAN CORPUSCULAR HEMOGLOBIN 26.1 PG (27.0-31.0); MEAN CORPUSCULAR HGB CONC 31.8 % (33.0-36.5); MEAN PLATELET VOLUME 7.3 FL (7.4-10.4); RED BLOOD COUNT 4.22 X10'6 (4.20-5.60); WHITE BLOOD COUNT 10.9 X10'3 (4.5-11.0)
[2017-09-12 20:52] LABS: BASOPHILS % (AUTO) 0.2 % (0-1); EOSINOPHILS % (AUTO) 2.7 % (0-6); HEMATOCRIT 34.6 % (35.0-45.0); LYMPHOCYTES # (AUTO) 3.2 X10'3 (1.1-4.8); LYMPHOCYTES % (AUTO) 29.3 % (21-51); MEAN CORPUSCULAR VOLUME 81.9 FL (78-98); MONOCYTES # (AUTO) 0.7 X10'3 (0-0.9); MONOCYTES % (AUTO) 6.8 % (2-12); NEUTROPHILS # (AUTO) 6.6 X10'3 (1.8-7.7); PLATELET COUNT 492 X10'3 (140-440); RED CELL DISTRIBUTION WIDTH 18.3 % (11.5-14.5)
[2017-09-12] MEDS ORDERED: ipratropium 0.5 MG/2.5ML nebule ONE (20:59)
[2017-09-12] MEDS ORDERED: ipratropium 0.5 MG/2.5ML nebule IH ONE (21:00)
[2017-09-12 21:39] LABS: CLARITY,URINE CLEAR (Clear); COLOR,URINE YELLOW (Yellow); GLUCOSE, URINE NEGATIVE (Neg); KETONES,URINE NEGATIVE (Neg); LEUKOCYTE ESTERASE ,URINE MODERATE (Neg); NITRITES, URINE NEGATIVE (Neg); OCCULT BLOOD,URINE TRACE-LYSED (Neg); PH,URINE 5.5 (4.8-8.0); PROTEIN,URINE NEGATIVE (Neg); UA COLLECTION TYPE CLN CATCH MIDSTREAM; UROBILINOGEN,URINE 0.2 E.U/dL (0.2-1.0)
[2017-09-12 21:51] LABS: BACTERIA,URINE FEW /HPF (Neg); MUCUS STRANDS NONE SEEN /LPF (Neg); RBC,URINE 0-2 /HPF (0-2); SQUAMOUS EPITHELIAL CELL,UR FEW /LPF (FEW); WBC,URINE 0-4 /HPF (0-4)
[2017-09-12 21:52] VITALS: BP 115/50
[2017-09-12] MEDS ORDERED: FURO40TA4 PO (22:33)
[2017-09-12] MEDS ORDERED: furosemide 40mg tablet PO ONE (22:35)
== END 2017-09-12 23:08 | disposition home or self-care (01) ==
LOC: ER 19:23
DX: R60.0 Localized edema (principal); R06.02 Shortness of breath; I87.2 Venous insufficiency (chronic) (peripheral); I48.91 Unspecified atrial fibrillation; I50.9 Heart failure, unspecified; E78.00 Pure hypercholesterolemia, unspecified; G89.29 Other chronic pain; J44.9 Chronic obstructive pulmonary disease, unspecified; Z90.49 Acquired absence of other specified parts of digestive tract; Z90.710 Acquired absence of both cervix and uterus; Z88.0 Allergy status to penicillin; Z88.1 Allergy status to other antibiotic agents; Z79.899 Other long term (current) drug therapy
CPT/HCPCS: 36415; 71045; 80053; 81001; 82800; 83605; 83880; 84145; 84484; 85025; 85610; 85730; 87040; 87088; 93005; 94640; 94760; 96374; 96375; 99285; J2060; J2930

== ENCOUNTER 2017-10-24 23:02 | Inpatient (IN) | payer MEDICARE, MEDICAID ==
[~2017-10-24] VITALS: Ht 170.2 cm; Wt 100.0 kg
[~2017-10-24 23:02] MED LIST changes: -ALBU18HF2 IH; +ASPI-611 PO; +CARSR60C PO; -CLOP75TA35 PO; +LIDO5CRE2 TP; +RIVA20TA PO
[2017-10-25 01:00] LABS: CLARITY,URINE CLEAR (Clear); COLOR,URINE YELLOW (Yellow); GLUCOSE, URINE NEGATIVE (Neg); KETONES,URINE NEGATIVE (Neg); LEUKOCYTE ESTERASE ,URINE TRACE (Neg); NITRITES, URINE NEGATIVE (Neg); OCCULT BLOOD,URINE NEGATIVE (Neg); PH,URINE 5.5 (4.8-8.0); PROTEIN,URINE NEGATIVE (Neg); UROBILINOGEN,URINE 0.2 E.U/dL (0.2-1.0)
[2017-10-25 01:02] LABS: ALANINE AMINOTRANSFERASE 17 U/L (12-78); ALBUMIN 2.6 G/DL (3.4-5.0); ALBUMIN/GLOBULIN RATIO 0.6 (1.1-1.5); ALKALINE PHOSPHATASE 106 IU/L (46-116); ANION GAP 7 (8-16); ASPARTATE AMINO TRANSFERASE 15 U/L (10-37); BILIRUBIN,TOTAL 0.3 MG/DL (0.1-1.0); BLOOD UREA NITROGEN 17 MG/DL (7-18); BUN/CREATININE RATIO 14.9 (6.6-38.0); CALCIUM 9.2 MG/DL (8.5-10.1); CHLORIDE 101 MMOL/L (99-107); CREATININE 1.14 MG/DL (0.40-0.90); GLUCOSE 109 MG/DL (70-104); POTASSIUM 3.7 MMOL/L (3.5-5.1); SODIUM 140 MMOL/L (135-145); TOTAL CARBON DIOXIDE 32.3 MMOL/L (24-32); TOTAL PROTEIN 7.1 G/DL (6.4-8.2); eGFR 47 ML/MIN
[2017-10-25 01:04] LABS: UA COLLECTION TYPE VOIDED
[2017-10-25 01:08] LABS: BACTERIA,URINE 2+ /HPF (Neg); MUCUS STRANDS NONE SEEN /LPF (Neg); RBC,URINE NONE SEEN /HPF (0-2); SQUAMOUS EPITHELIAL CELL,UR MODERATE /LPF (FEW)
[2017-10-25 01:11] LABS: TROPONIN I < 0.04 NG/ML (0.0-0.05)
[2017-10-25 02:25] LABS: BASOPHILS # (AUTO) 0.1 X10'3 (0-0.2); BASOPHILS % (AUTO) 0.5 % (0-1); EOSINOPHILS # (AUTO) 0.3 X10'3 (0-0.9); EOSINOPHILS % (AUTO) 2.5 % (0-6); HEMATOCRIT 33.9 % (35.0-45.0); HEMOGLOBIN 10.7 g/dl (12.0-16.0); LYMPHOCYTES # (AUTO) 2.5 X10'3 (1.1-4.8); LYMPHOCYTES % (AUTO) 23.8 % (21-51); MEAN CORPUSCULAR HEMOGLOBIN 25.2 PG (27.0-31.0); MEAN CORPUSCULAR HGB CONC 31.5 % (33.0-36.5); MEAN CORPUSCULAR VOLUME 80.1 FL (78-98); MONOCYTES # (AUTO) 1.1 X10'3 (0-0.9); MONOCYTES % (AUTO) 10.1 % (2-12); NEUTROPHILS # (AUTO) 6.6 X10'3 (1.8-7.7); NEUTROPHILS % (AUTO) 63.1 % (42-75); PLATELET COUNT 562 X10'3 (140-440); RED BLOOD COUNT 4.23 X10'6 (4.20-5.60); RED CELL DISTRIBUTION WIDTH 17.4 % (11.5-14.5); WHITE BLOOD COUNT 10.5 X10'3 (4.5-11.0)
[2017-10-25] MEDS ORDERED: BUDE0.5A11 IH (03:28)
[2017-10-25] MEDS ORDERED: HYDROcodone/acetaminophen 5mg/325mg tablet PO PRN (04:05)
[2017-10-25] MEDS ORDERED: mag hydrox/Alum hydrox/simeth 30ml oral suspension PO PRN (04:05)
[2017-10-25] MEDS ORDERED: magnesium hydroxide 30ml (MOM) UD suspension PO PRN (04:05)
[2017-10-25] MEDS ORDERED: metoclopramide 5 mg/ml inj IV PRN (04:05)
[2017-10-25] MEDS ORDERED: diphenhydrAMINE 50 mg/ml inj IV PRN (04:05)
[2017-10-25] MEDS ORDERED: ondansetron/PF 4mg/2ml inj IV PRN (04:05)
[2017-10-25] MEDS ORDERED: acetaminophen 325mg tablet PO PRN ×2 (04:05)
[2017-10-25] MEDS ORDERED: diphenhydrAMINE 25mg capsule PO PRN (04:05)
[2017-10-25] MEDS ORDERED: bisacodyl 10mg suppository rectal RC PRN (04:05)
[2017-10-25] MEDS ORDERED: acetaminophen 650mg rectal suppository RC PRN (04:05)
[2017-10-25] MEDS ORDERED: HYDROmorphone inj. 0.5 MG/0.5 ML DISP.SYRIN IV PRN ×2 (04:05)
[2017-10-25] MEDS ORDERED: morphine 4 MG/ML inj SYRINge IV PRN ×2 (04:05)
[2017-10-25] MEDS ORDERED: CefTRIAXone/D5W-Rocephin 1gm 50 ML IV ONE (04:25)
[2017-10-25 05:10] VITALS: BP 146/56
[2017-10-25] MEDS ORDERED: cyclobenzaprine 10mg tablet PO PRN (05:15)
[2017-10-25] MEDS: methylPREDNISolone sod succ 125mg/2ml vial IV SCH ×2 (05:49→20:54)
[2017-10-25 06:15] LABS: HEMOGLOBIN A1C 6.3 % (4.5-6.2)
[2017-10-25 06:23] LABS: MAGNESIUM 1.7 MG/DL (1.5-2.4); PHOSPHORUS 3.7 MG/DL (2.3-4.5)
[2017-10-25 07:10] LABS: INR 1.1 INR; PARTIAL THROMBOPLASTIN TIME 28 SECONDS (22-32); PROTHROMBIN TIME 10.9 SECONDS (9.0-12.0)
[2017-10-25] MEDS: levalbuterol 0.63mg/3ml nebule IH SCH ×3 (07:54→20:26)
[2017-10-25] MEDS ORDERED: pravastatin 40mg tablet PO SCH (08:00)
[2017-10-25] MEDS ORDERED: montelukast 10mg tablet PO SCH (08:00)
[2017-10-25] MEDS: aspirin 81mg tablet.DR PO SCH (08:00)
[2017-10-25] MEDS ORDERED: metoprolol tartrate 25mg tablet PO SCH (08:00)
[2017-10-25] MEDS ORDERED: furosemide 10 MG/1 ML 10ml inj IV SCH (08:00)
[2017-10-25] MEDS: metoprolol tartrate 12.5mg (1/2 tablet) PO SCH ×2 (08:42→17:20)
[2017-10-25] MEDS: pantoprazole 40mg Tablet.DR PO SCH (08:42)
[2017-10-25] MEDS: rivaroxaban 20mg tablet PO SCH (08:43)
[2017-10-25] MEDS ORDERED: atorvastatin 10mg tablet PO SCH (08:44)
[2017-10-25] MEDS: docusate sod 100mg capsule PO SCH ×2 (08:44→20:54)
[2017-10-25] MEDS: azithromycin/NS 500mg/250ml 250 ML IV SCH (08:44)
[2017-10-25] MEDS: famotidine 20mg tablet PO SCH (08:44)
[2017-10-25] MEDS ORDERED: montelukast 10mg tablet PO ONE (08:45)
[2017-10-25] MEDS: lactobacillus rhamnosus 10,000 MMU CELLS/CAPSULE PO SCH ×2 (08:46→20:54)
[2017-10-25] MEDS: HYDROcodone/acetaminophen 10/325mg tab PO PRN ×3 (09:03→21:05)
[2017-10-25] MEDS ORDERED: DIGO250T77 PO (09:29)
[2017-10-25 10:00] VITALS: BP 135/69
[2017-10-25] MEDS ORDERED: budesonide 0.5mg/2ml UD nebule IH SCH ×2 (11:45→20:00)
[2017-10-25] MEDS: diltiazem CD 180mg cap (once-daily) PO SCH (16:23)
[2017-10-25] MEDS: digoxin 250mcg (0.25mg) tablet PO SCH (16:23)
[2017-10-25 18:00] VITALS: BP 127/64
[2017-10-25] MEDS: BUDESONIDE 0.25 MG/2 ML AMPUL.NEB IH SCH (20:25)
[2017-10-25] MEDS: traZODone 50mg tablet PO SCH (20:53)
[2017-10-25] MEDS: CefTRIAXone/D5W-Rocephin 1gm 50 ML IV SCH (20:53)
[2017-10-25] MEDS ORDERED: temazepam 15mg capsule PO PRN (21:00)
[2017-10-25] MEDS: morphine ER 15mg tablet PO SCH (21:19)
[2017-10-25 22:00] VITALS: BP 128/41
[2017-10-25] MEDS ORDERED: metoprolol tartrate 12.5mg (1/2 tablet) PO ONE (22:50)
[2017-10-26 02:00] VITALS: BP 132/44
[2017-10-26] MEDS: levalbuterol 0.63mg/3ml nebule IH SCH ×4 (02:38→20:30)
[2017-10-26] MEDS: HYDROcodone/acetaminophen 10/325mg tab PO PRN ×5 (04:51→20:59)
[2017-10-26 06:00] VITALS: BP 131/35
[2017-10-26 06:59] LABS: BASOPHILS % (AUTO) 0.1 % (0-1); EOSINOPHILS # (AUTO) 0.1 X10'3 (0-0.9); EOSINOPHILS % (AUTO) 1.4 % (0-6); HEMATOCRIT 35.2 % (35.0-45.0); LYMPHOCYTES # (AUTO) 1.1 X10'3 (1.1-4.8); LYMPHOCYTES % (AUTO) 12.2 % (21-51); MEAN CORPUSCULAR HEMOGLOBIN 24.9 PG (27.0-31.0); MEAN CORPUSCULAR HGB CONC 31.4 % (33.0-36.5); MEAN CORPUSCULAR VOLUME 79.2 FL (78-98); MEAN PLATELET VOLUME 7.7 FL (7.4-10.4); MONOCYTES # (AUTO) 0.1 X10'3 (0-0.9); MONOCYTES % (AUTO) 0.8 % (2-12); NEUTROPHILS # (AUTO) 7.9 X10'3 (1.8-7.7); NEUTROPHILS % (AUTO) 85.5 % (42-75); PLATELET COUNT 561 X10'3 (140-440); RED BLOOD COUNT 4.44 X10'6 (4.20-5.60); RED CELL DISTRIBUTION WIDTH 17.5 % (11.5-14.5); WHITE BLOOD COUNT 9.2 X10'3 (4.5-11.0)
[2017-10-26 07:28] LABS: ALANINE AMINOTRANSFERASE 13 U/L (12-78); ALBUMIN 2.4 G/DL (3.4-5.0); ALBUMIN/GLOBULIN RATIO 0.5 (1.1-1.5); ALKALINE PHOSPHATASE 96 IU/L (46-116); ANION GAP 6 (8-16); ASPARTATE AMINO TRANSFERASE 17 U/L (10-37); BILIRUBIN,TOTAL 0.3 MG/DL (0.1-1.0); BLOOD UREA NITROGEN 17 MG/DL (7-18); BUN/CREATININE RATIO 15.5 (6.6-38.0); CALCIUM 9.3 MG/DL (8.5-10.1); CHLORIDE 103 MMOL/L (99-107); GLUCOSE 168 MG/DL (70-104); POTASSIUM 3.3 MMOL/L (3.5-5.1); SODIUM 140 MMOL/L (135-145); TOTAL CARBON DIOXIDE 31.2 MMOL/L (24-32); eGFR 49 ML/MIN
[2017-10-26] MEDS: lactobacillus rhamnosus 10,000 MMU CELLS/CAPSULE PO SCH ×2 (07:37→19:29)
[2017-10-26] MEDS: docusate sod 100mg capsule PO SCH ×2 (07:38→19:29)
[2017-10-26] MEDS: metoprolol tartrate 12.5mg (1/2 tablet) PO SCH ×2 (07:38→19:29)
[2017-10-26] MEDS: rivaroxaban 20mg tablet PO SCH (07:38)
[2017-10-26] MEDS: famotidine 20mg tablet PO SCH (07:38)
[2017-10-26] MEDS: atorvastatin 10mg tablet PO SCH (07:39)
[2017-10-26] MEDS: diltiazem CD 180mg cap (once-daily) PO SCH (07:39)
[2017-10-26] MEDS: pantoprazole 40mg Tablet.DR PO SCH (07:39)
[2017-10-26] MEDS: morphine ER 15mg tablet PO SCH ×2 (07:39→19:30)
[2017-10-26] MEDS: aspirin 81mg tablet.DR PO SCH (07:40)
[2017-10-26] MEDS: montelukast 10mg tablet PO SCH (07:40)
[2017-10-26] MEDS: digoxin 250mcg (0.25mg) tablet PO SCH (07:40)
[2017-10-26] MEDS: methylPREDNISolone sod succ 125mg/2ml vial IV SCH ×2 (07:42→19:29)
[2017-10-26] MEDS: azithromycin/NS 500mg/250ml 250 ML IV SCH (07:46)
[2017-10-26] MEDS: furosemide 10 MG/1 ML 10ml inj IV SCH (07:58)
[2017-10-26] MEDS ORDERED: polyethylene glycol 3350 17gm powd pack PO PRN (08:00)
[2017-10-26] MEDS: BUDESONIDE 0.25 MG/2 ML AMPUL.NEB IH SCH ×2 (08:45→20:30)
[2017-10-26] MEDS: CefTRIAXone/D5W-Rocephin 1gm 50 ML IV SCH (08:59)
[2017-10-26] MEDS ORDERED: potassium Cl 40MEQ/NS 500ml 500 ML IV PRN ×2 (09:20)
[2017-10-26] MEDS ORDERED: potassium Cl 20 mEq SR tablet PO PRN (09:20)
[2017-10-26] MEDS: potassium Cl 20 mEq SR tablet PO PRN ×3 (09:49→16:50)
[2017-10-26 10:00] VITALS: BP 111/61
[2017-10-26] MEDS: levoFLOXACIN-Levaquin 500mg/D5 100 ML IV SCH (12:34)
[2017-10-26 18:00] VITALS: BP 124/53
[2017-10-26] MEDS: traZODone 50mg tablet PO SCH (21:03)
[2017-10-26 22:00] VITALS: BP 110/68
[2017-10-27] MEDS: levalbuterol 0.63mg/3ml nebule IH SCH ×3 (03:05→21:10)
[2017-10-27 06:00] VITALS: BP 140/58
[2017-10-27] MEDS: HYDROcodone/acetaminophen 10/325mg tab PO PRN ×4 (06:01→18:40)
[2017-10-27 06:05] LABS: BASOPHILS % (AUTO) 0 % (0-1); EOSINOPHILS # (AUTO) 0.2 X10'3 (0-0.9); EOSINOPHILS % (AUTO) 1.7 % (0-6); HEMATOCRIT 35.5 % (35.0-45.0); HEMOGLOBIN 11.1 g/dl (12.0-16.0); LYMPHOCYTES % (AUTO) 7.9 % (21-51); MEAN CORPUSCULAR HGB CONC 31.3 % (33.0-36.5); MEAN CORPUSCULAR VOLUME 79.9 FL (78-98); MEAN PLATELET VOLUME 7.4 FL (7.4-10.4); MONOCYTES # (AUTO) 0.2 X10'3 (0-0.9); MONOCYTES % (AUTO) 1.9 % (2-12); NEUTROPHILS # (AUTO) 10.8 X10'3 (1.8-7.7); NEUTROPHILS % (AUTO) 88.5 % (42-75); PLATELET COUNT 574 X10'3 (140-440); RED BLOOD COUNT 4.45 X10'6 (4.20-5.60); RED CELL DISTRIBUTION WIDTH 17.2 % (11.5-14.5); WHITE BLOOD COUNT 12.2 X10'3 (4.5-11.0)
[2017-10-27 06:37] LABS: ALANINE AMINOTRANSFERASE 32 U/L (12-78); ALBUMIN 2.5 G/DL (3.4-5.0); ALBUMIN/GLOBULIN RATIO 0.6 (1.1-1.5); ALKALINE PHOSPHATASE 91 IU/L (46-116); ANION GAP 2 (8-16); ASPARTATE AMINO TRANSFERASE 30 U/L (10-37); BILIRUBIN,TOTAL 0.3 MG/DL (0.1-1.0); BLOOD UREA NITROGEN 23 MG/DL (7-18); BUN/CREATININE RATIO 19.8 (6.6-38.0); CALCIUM 9.3 MG/DL (8.5-10.1); CHLORIDE 103 MMOL/L (99-107); CREATININE 1.16 MG/DL (0.40-0.90); GLUCOSE 154 MG/DL (70-104); POTASSIUM 4.5 MMOL/L (3.5-5.1); SODIUM 137 MMOL/L (135-145); TOTAL CARBON DIOXIDE 31.6 MMOL/L (24-32); TOTAL PROTEIN 6.9 G/DL (6.4-8.2); eGFR 46 ML/MIN
[2017-10-27] MEDS: K and/or MAG REPLACEMENT MC SCH (07:25)
[2017-10-27] MEDS: morphine ER 15mg tablet PO SCH ×2 (07:32→20:00)
[2017-10-27] MEDS: diltiazem CD 180mg cap (once-daily) PO SCH (07:32)
[2017-10-27] MEDS: metoprolol tartrate 12.5mg (1/2 tablet) PO SCH ×2 (07:32→20:00)
[2017-10-27] MEDS: famotidine 20mg tablet PO SCH (07:32)
[2017-10-27] MEDS: aspirin 81mg tablet.DR PO SCH (07:33)
[2017-10-27] MEDS: rivaroxaban 20mg tablet PO SCH (07:33)
[2017-10-27] MEDS: digoxin 250mcg (0.25mg) tablet PO SCH (07:33)
[2017-10-27] MEDS: pantoprazole 40mg Tablet.DR PO SCH (07:33)
[2017-10-27] MEDS: montelukast 10mg tablet PO SCH (07:34)
[2017-10-27] MEDS: docusate sod 100mg capsule PO SCH ×2 (07:34→20:00)
[2017-10-27] MEDS: lactobacillus rhamnosus 10,000 MMU CELLS/CAPSULE PO SCH ×2 (07:34→20:00)
[2017-10-27] MEDS: atorvastatin 10mg tablet PO SCH (07:34)
[2017-10-27] MEDS: methylPREDNISolone sod succ 125mg/2ml vial IV SCH ×2 (07:36→20:00)
[2017-10-27] MEDS: furosemide 10 MG/1 ML 10ml inj IV SCH (07:36)
[2017-10-27] MEDS: levoFLOXACIN-Levaquin 500mg/D5 100 ML IV SCH (07:37)
[2017-10-27] MEDS: BUDESONIDE 0.25 MG/2 ML AMPUL.NEB IH SCH ×2 (08:17→19:31)
[2017-10-27 10:00] VITALS: BP 133/32
[2017-10-27 18:00] VITALS: BP 142/43
[2017-10-27 22:00] VITALS: BP 142/54
[2017-10-27] MEDS: traZODone 50mg tablet PO SCH (22:15)
[2017-10-27] MEDS: hydrOXYzine 25 MG tablet PO PRN (22:16)
[2017-10-28] MEDS: levalbuterol 0.63mg/3ml nebule IH SCH ×2 (02:43→08:34)
[2017-10-28] MEDS: HYDROcodone/acetaminophen 10/325mg tab PO PRN ×2 (05:27→10:59)
[2017-10-28 06:00] VITALS: BP 118/57
[2017-10-28 06:18] LABS: BASOPHILS % (AUTO) 0 % (0-1); EOSINOPHILS # (AUTO) 0.1 X10'3 (0-0.9); EOSINOPHILS % (AUTO) 1.3 % (0-6); HEMATOCRIT 36.7 % (35.0-45.0); HEMOGLOBIN 11.8 g/dl (12.0-16.0); LYMPHOCYTES # (AUTO) 0.8 X10'3 (1.1-4.8); LYMPHOCYTES % (AUTO) 9.3 % (21-51); MEAN CORPUSCULAR HEMOGLOBIN 25.3 PG (27.0-31.0); MEAN CORPUSCULAR VOLUME 79.1 FL (78-98); MEAN PLATELET VOLUME 7.2 FL (7.4-10.4); MONOCYTES # (AUTO) 0.3 X10'3 (0-0.9); MONOCYTES % (AUTO) 3.4 % (2-12); NEUTROPHILS # (AUTO) 7.7 X10'3 (1.8-7.7); PLATELET COUNT 587 X10'3 (140-440); RED BLOOD COUNT 4.64 X10'6 (4.20-5.60); RED CELL DISTRIBUTION WIDTH 17.4 % (11.5-14.5); WHITE BLOOD COUNT 8.9 X10'3 (4.5-11.0)
[2017-10-28 06:37] LABS: ALANINE AMINOTRANSFERASE 35 U/L (12-78); ALBUMIN 2.5 G/DL (3.4-5.0); ALBUMIN/GLOBULIN RATIO 0.6 (1.1-1.5); ALKALINE PHOSPHATASE 90 IU/L (46-116); ANION GAP 6 (8-16); ASPARTATE AMINO TRANSFERASE 25 U/L (10-37); BILIRUBIN,TOTAL 0.4 MG/DL (0.1-1.0); BLOOD UREA NITROGEN 25 MG/DL (7-18); BUN/CREATININE RATIO 24.5 (6.6-38.0); CALCIUM 9.5 MG/DL (8.5-10.1); CHLORIDE 102 MMOL/L (99-107); CREATININE 1.02 MG/DL (0.40-0.90); GLUCOSE 169 MG/DL (70-104); POTASSIUM 4.1 MMOL/L (3.5-5.1); SODIUM 141 MMOL/L (135-145); TOTAL CARBON DIOXIDE 33.4 MMOL/L (24-32); eGFR 53 ML/MIN
[2017-10-28] MEDS: pantoprazole 40mg Tablet.DR PO SCH (07:20)
[2017-10-28] MEDS: rivaroxaban 20mg tablet PO SCH (07:21)
[2017-10-28] MEDS: docusate sod 100mg capsule PO SCH (07:21)
[2017-10-28] MEDS: lactobacillus rhamnosus 10,000 MMU CELLS/CAPSULE PO SCH (07:21)
[2017-10-28] MEDS: diltiazem CD 180mg cap (once-daily) PO SCH (07:21)
[2017-10-28] MEDS: aspirin 81mg tablet.DR PO SCH (07:22)
[2017-10-28] MEDS: digoxin 250mcg (0.25mg) tablet PO SCH (07:23)
[2017-10-28] MEDS: famotidine 20mg tablet PO SCH (07:24)
[2017-10-28] MEDS: atorvastatin 10mg tablet PO SCH (07:24)
[2017-10-28] MEDS: montelukast 10mg tablet PO SCH (07:24)
[2017-10-28] MEDS: metoprolol tartrate 12.5mg (1/2 tablet) PO SCH (07:24)
[2017-10-28] MEDS: morphine ER 15mg tablet PO SCH (07:24)
[2017-10-28] MEDS: methylPREDNISolone sod succ 125mg/2ml vial IV SCH (08:00)
[2017-10-28] MEDS: furosemide 10 MG/1 ML 10ml inj IV SCH (08:00)
[2017-10-28] MEDS: K and/or MAG REPLACEMENT MC SCH (08:00)
[2017-10-28] MEDS: BUDESONIDE 0.25 MG/2 ML AMPUL.NEB IH SCH (08:34)
[2017-10-28 10:00] VITALS: BP 123/44
[2017-10-28] MEDS: hydrOXYzine 25 MG tablet PO PRN (10:59)
[2017-10-28] MEDS ORDERED: levoFLOXACIN 250mg tablet PO SCH (11:00)
[2017-10-28] MEDS ORDERED: levoFLOXACIN 500mg tablet PO SCH (11:00)
[2017-10-28] MEDS ORDERED: PRED10TA23 PO (12:55)
[2017-10-28] MEDS ORDERED: LEVO250T58 PO (12:55)
== END 2017-10-28 13:37 | disposition home health service (06) | DRG 291 ==
LOC: ER 23:02 → ED HOLD 10-25 04:05 → ORTHO 4S 10-25 05:02
PROVIDERS: ADMIT Family Medicine; ATTEND Internal Medicine
DX: I13.0 Hypertensive heart and chronic kidney disease with heart failure and stage 1 through stage 4 chronic kidney disease, or unspecified chronic kidney disease (principal); I50.33 Acute on chronic diastolic (congestive) heart failure; J44.1 Chronic obstructive pulmonary disease with (acute) exacerbation; N17.9 Acute kidney failure, unspecified; N39.0 Urinary tract infection, site not specified; J96.10 Chronic respiratory failure, unspecified whether with hypoxia or hypercapnia; L03.116 Cellulitis of left lower limb; L03.115 Cellulitis of right lower limb; B96.89 Other specified bacterial agents as the cause of diseases classified elsewhere; E78.00 Pure hypercholesterolemia, unspecified; G89.29 Other chronic pain; I25.10 Atherosclerotic heart disease of native coronary artery without angina pectoris; I35.0 Nonrheumatic aortic (valve) stenosis; N18.9 Chronic kidney disease, unspecified; I48.2 Chronic atrial fibrillation; Z90.710 Acquired absence of both cervix and uterus; Z90.49 Acquired absence of other specified parts of digestive tract; Z95.5 Presence of coronary angioplasty implant and graft; Z79.01 Long term (current) use of anticoagulants; Z79.82 Long term (current) use of aspirin; Z88.8 Allergy status to other drugs, medicaments and biological substances; Z87.891 Personal history of nicotine dependence
CPT/HCPCS: 36415; 70450; 71045; 71250; 80053; 80162; 81001; 83036; 83605; 83735; 83880; 84100; 84484; 85025; 85610; 85730; 87070; 87077; 87088; 87186; 93970; 94640; 94760; 97162; 99285; A6212; A6213; A6250; A6449; J0456; J0696; J1940; J1956; J2930; J7614; J7626; Q0177

== ENCOUNTER 2017-12-24 20:45 | Inpatient (IN) | payer MEDICARE, MEDICAID ==
[~2017-12-24] VITALS: Ht 170.2 cm; Wt 95.7 kg
[~2017-12-24 20:45] MED LIST changes: +BUDE0.5A11 IH; -DICL100G15 TOP; +DIGO250T77 PO; -PRED5TAB PO; -PROP10TA10 PO; -TRAZ-143 PO; +TRAZ-218 PO
[2017-12-24] MEDS ORDERED: temazepam 15mg capsule PO PRN (21:00)
[2017-12-24 21:40] LABS: BASOPHILS # (AUTO) 0.1 X10'3 (0-0.2); BASOPHILS % (AUTO) 0.8 % (0-1); EOSINOPHILS # (AUTO) 0.2 X10'3 (0-0.9); EOSINOPHILS % (AUTO) 1.3 % (0-6); HEMATOCRIT 33.8 % (35.0-45.0); HEMOGLOBIN 10.6 g/dl (12.0-16.0); LYMPHOCYTES # (AUTO) 3.4 X10'3 (1.1-4.8); LYMPHOCYTES % (AUTO) 22.5 % (21-51); MEAN CORPUSCULAR HEMOGLOBIN 23.4 PG (27.0-31.0); MEAN CORPUSCULAR HGB CONC 31.3 % (33.0-36.5); MEAN PLATELET VOLUME 7.2 FL (7.4-10.4); MONOCYTES % (AUTO) 6.8 % (2-12); NEUTROPHILS # (AUTO) 10.3 X10'3 (1.8-7.7); NEUTROPHILS % (AUTO) 68.6 % (42-75); PLATELET COUNT 786 X10'3 (140-440); RED BLOOD COUNT 4.51 X10'6 (4.20-5.60); RED CELL DISTRIBUTION WIDTH 18.8 % (11.5-14.5); WHITE BLOOD COUNT 14.9 X10'3 (4.5-11.0)
[2017-12-24 21:52] LABS: INR 1.1 INR; PARTIAL THROMBOPLASTIN TIME 30 SECONDS (22-32); PROTHROMBIN TIME 10.9 SECONDS (9.0-12.0)
[2017-12-24 22:00] LABS: PLATELET ESTIMATE INCREASED
[2017-12-24 22:01] LABS: ANISOCYTOSIS 2+
[2017-12-24 22:02] LABS: HYPOCHROMASIA 1+
[2017-12-24 22:03] LABS: ACANTHOCYTES FEW; ELLIPTOCYTES FEW; TARGET CELLS 1+
[2017-12-24 22:05] LABS: ALANINE AMINOTRANSFERASE 15 U/L (12-78); ALBUMIN 2.7 G/DL (3.4-5.0); ALBUMIN/GLOBULIN RATIO 0.6 (1.1-1.5); ALKALINE PHOSPHATASE 106 IU/L (46-116); ANION GAP 5 (8-16); ASPARTATE AMINO TRANSFERASE 20 U/L (10-37); BILIRUBIN,TOTAL 0.5 MG/DL (0.1-1.0); BLOOD UREA NITROGEN 24 MG/DL (7-18); BUN/CREATININE RATIO 23.5 (6.6-38.0); CALCIUM 9.2 MG/DL (8.5-10.1); CHLORIDE 92 MMOL/L (99-107); CREATINE KINASE 53 U/L (26-192); CREATININE 1.02 MG/DL (0.40-0.90); GLUCOSE 92 MG/DL (70-104); MAGNESIUM 1.7 MG/DL (1.5-2.4); SODIUM 136 MMOL/L (135-145); TOTAL CARBON DIOXIDE 38.7 MMOL/L (24-32); TOTAL PROTEIN 7.5 G/DL (6.4-8.2); eGFR 53 ML/MIN
[2017-12-24 22:07] LABS: ACETAMINOPHEN < 2.0 UG/ML (10-30)
[2017-12-24 22:08] LABS: POTASSIUM 2.1 MMOL/L (3.5-5.1)
[2017-12-24] MEDS ORDERED: potassium Cl 20 mEq SR tablet PO ONE (22:10)
[2017-12-24] MEDS ORDERED: HYDROcodone/acetaminophen 10/325mg tab PO ONE (22:15)
[2017-12-24] MEDS: potassium 10mEq/100ml NS w/LIDOcaine (10mg/bag) IV SCH ×2 (22:22→23:20)
[2017-12-24] MEDS ORDERED: diphenhydrAMINE 50 mg/ml inj IV PRN (23:20)
[2017-12-24] MEDS ORDERED: HYDROcodone/acetaminophen 5mg/325mg tablet PO PRN (23:20)
[2017-12-24] MEDS ORDERED: acetaminophen 650mg rectal suppository RC PRN (23:20)
[2017-12-24] MEDS ORDERED: bisacodyl 10mg suppository rectal RC PRN (23:20)
[2017-12-24] MEDS ORDERED: potassium Cl 40MEQ/NS 500ml 500 ML IV PRN ×2 (23:20)
[2017-12-24] MEDS ORDERED: acetaminophen 325mg tablet PO PRN (23:20)
[2017-12-24] MEDS ORDERED: diphenhydrAMINE 25mg capsule PO PRN (23:20)
[2017-12-24] MEDS ORDERED: morphine 2 MG/ML inj. syringe IV PRN (23:20)
[2017-12-24] MEDS ORDERED: magnesium hydroxide 30ml (MOM) UD suspension PO PRN (23:20)
[2017-12-24] MEDS ORDERED: mag hydrox/Alum hydrox/simeth 30ml oral suspension PO PRN (23:20)
[2017-12-24] MEDS ORDERED: metoclopramide 5 mg/ml inj IV PRN (23:20)
[2017-12-24] MEDS ORDERED: ondansetron/PF 4mg/2ml inj IV PRN (23:20)
[2017-12-24 23:45] LABS: HEMOGLOBIN A1C 7.2 % (4.5-6.2)
[2017-12-24 23:56] LABS: PHOSPHORUS 2.8 MG/DL (2.3-4.5)
[2017-12-25] MEDS: K and/or MAG REPLACEMENT MC SCH ×2 (00:14→08:00)
[2017-12-25] MEDS: ceFAZolin 1GM/D5W- ADD-VANTAGE 50 ML IV SCH ×3 (01:38→15:59)
[2017-12-25] MEDS: morphine 2 MG/ML inj. syringe IV PRN ×3 (01:45→21:47)
[2017-12-25 06:25] LABS: CLARITY,URINE CLEAR (Clear); COLOR,URINE YELLOW (Yellow); GLUCOSE, URINE NEGATIVE (Neg); KETONES,URINE NEGATIVE (Neg); LEUKOCYTE ESTERASE ,URINE NEGATIVE (Neg); NITRITES, URINE NEGATIVE (Neg); OCCULT BLOOD,URINE NEGATIVE (Neg); PH,URINE 7.5 (4.8-8.0); PROTEIN,URINE NEGATIVE (Neg); UROBILINOGEN,URINE 0.2 E.U/dL (0.2-1.0)
[2017-12-25 06:26] LABS: UA COLLECTION TYPE VOIDED
[2017-12-25 06:31] LABS: URINE AMPHETAMINE SCREEN NEGATIVE (Neg); URINE BARBITUATE SCREEN NEGATIVE (Neg); URINE BENZODIAZEPINES SCREEN NEGATIVE (Neg); URINE CANNABINOID SCREEN NEGATIVE (Neg); URINE COCAINE SCREEN NEGATIVE (Neg); URINE METHADONE SCREEN NEGATIVE (Neg); URINE OPIATE SCREEN POSITIVE (Neg); URINE PHENCYCLIDINE SCREEN NEGATIVE (Neg)
[2017-12-25] MEDS: pantoprazole 40mg Tablet.DR PO SCH (07:11)
[2017-12-25 07:12] LABS: BASOPHILS % (AUTO) 0.1 % (0-1); EOSINOPHILS # (AUTO) 0.5 X10'3 (0-0.9); EOSINOPHILS % (AUTO) 4.3 % (0-6); HEMATOCRIT 34.1 % (35.0-45.0); HEMOGLOBIN 10.8 g/dl (12.0-16.0); LYMPHOCYTES # (AUTO) 3.2 X10'3 (1.1-4.8); LYMPHOCYTES % (AUTO) 26.1 % (21-51); MEAN CORPUSCULAR HEMOGLOBIN 23.9 PG (27.0-31.0); MEAN CORPUSCULAR HGB CONC 31.5 % (33.0-36.5); MEAN CORPUSCULAR VOLUME 75.9 FL (78-98); MEAN PLATELET VOLUME 7.4 FL (7.4-10.4); MONOCYTES # (AUTO) 1.1 X10'3 (0-0.9); NEUTROPHILS # (AUTO) 7.5 X10'3 (1.8-7.7); NEUTROPHILS % (AUTO) 60.5 % (42-75); PLATELET COUNT 771 X10'3 (140-440); RED BLOOD COUNT 4.49 X10'6 (4.20-5.60); RED CELL DISTRIBUTION WIDTH 18.5 % (11.5-14.5); WHITE BLOOD COUNT 12.3 X10'3 (4.5-11.0)
[2017-12-25] MEDS: famotidine 20mg tablet PO SCH (07:12)
[2017-12-25] MEDS: aspirin 81mg tablet.DR PO SCH (07:12)
[2017-12-25] MEDS: metoprolol tartrate 12.5mg (1/2 tablet) PO SCH ×2 (07:12→20:28)
[2017-12-25] MEDS: morphine ER 15mg tablet PO SCH ×2 (07:13→20:28)
[2017-12-25] MEDS: digoxin 250mcg (0.25mg) tablet PO SCH (07:13)
[2017-12-25] MEDS: docusate sod 100mg capsule PO SCH ×2 (07:14→20:28)
[2017-12-25] MEDS: diltiazem CD 180mg cap (once-daily) PO SCH (07:14)
[2017-12-25] MEDS: HYDROcodone/acetaminophen 10/325mg tab PO PRN ×2 (07:18→14:39)
[2017-12-25 07:34] LABS: ALANINE AMINOTRANSFERASE 15 U/L (12-78); ALBUMIN 2.5 G/DL (3.4-5.0); ALBUMIN/GLOBULIN RATIO 0.6 (1.1-1.5); ALKALINE PHOSPHATASE 97 IU/L (46-116); ANION GAP 4 (8-16); ASPARTATE AMINO TRANSFERASE 18 U/L (10-37); BILIRUBIN,TOTAL 0.5 MG/DL (0.1-1.0); BLOOD UREA NITROGEN 19 MG/DL (7-18); BUN/CREATININE RATIO 17.9 (6.6-38.0); CALCIUM 9.3 MG/DL (8.5-10.1); CHLORIDE 97 MMOL/L (99-107); CREATININE 1.06 MG/DL (0.40-0.90); GLUCOSE 105 MG/DL (70-104); SODIUM 140 MMOL/L (135-145); TOTAL CARBON DIOXIDE 39.2 MMOL/L (24-32); eGFR 51 ML/MIN
[2017-12-25] MEDS: budesonide 0.5mg/2ml UD nebule IH SCH ×2 (07:51→19:59)
[2017-12-25 08:04] LABS: POTASSIUM 2.3 MMOL/L (3.5-5.1)
[2017-12-25] MEDS: potassium Cl 20 mEq SR tablet PO PRN ×3 (08:38→20:28)
[2017-12-25 09:17] LABS: ANISOCYTOSIS 2+; PLATELET ESTIMATE INCREASED
[2017-12-25 09:18] LABS: ACANTHOCYTES FEW; ELLIPTOCYTES FEW; HYPOCHROMASIA 1+; SCHISTOCYTES FEW
[2017-12-25 09:20] LABS: POLYCHROMASIA FEW; TARGET CELLS FEW
[2017-12-25] MEDS: pravastatin 40mg tablet PO SCH (10:57)
[2017-12-25 14:30] VITALS: BP 115/50
[2017-12-25] MEDS: cyclobenzaprine 10mg tablet PO PRN (16:00)
[2017-12-25 18:00] VITALS: BP 130/64
[2017-12-25] MEDS: montelukast 10mg tablet PO SCH (20:30)
[2017-12-25] MEDS: lactobacillus rhamnosus 10,000 MMU CELLS/CAPSULE PO SCH (20:30)
[2017-12-25] MEDS: rivaroxaban 20mg tablet PO SCH (20:31)
[2017-12-25] MEDS: traZODone 50mg tablet PO SCH (21:46)
[2017-12-25 22:00] VITALS: BP 119/63
[2017-12-26] MEDS: ceFAZolin 1GM/D5W- ADD-VANTAGE 50 ML IV SCH ×3 (00:22→16:19)
[2017-12-26] MEDS: cyclobenzaprine 10mg tablet PO PRN ×2 (00:31→12:18)
[2017-12-26] MEDS: potassium Cl 20 mEq SR tablet PO PRN ×5 (01:12→21:11)
[2017-12-26] MEDS: HYDROcodone/acetaminophen 10/325mg tab PO PRN ×3 (01:18→17:06)
[2017-12-26 05:53] LABS: BASOPHILS # (AUTO) 0.1 X10'3 (0-0.2); BASOPHILS % (AUTO) 0.5 % (0-1); EOSINOPHILS # (AUTO) 0.8 X10'3 (0-0.9); EOSINOPHILS % (AUTO) 6.6 % (0-6); HEMATOCRIT 32.8 % (35.0-45.0); HEMOGLOBIN 10.4 g/dl (12.0-16.0); LYMPHOCYTES # (AUTO) 2.9 X10'3 (1.1-4.8); MEAN CORPUSCULAR HEMOGLOBIN 23.8 PG (27.0-31.0); MEAN CORPUSCULAR HGB CONC 31.7 % (33.0-36.5); MEAN CORPUSCULAR VOLUME 75.3 FL (78-98); MEAN PLATELET VOLUME 7.2 FL (7.4-10.4); MONOCYTES # (AUTO) 1.1 X10'3 (0-0.9); MONOCYTES % (AUTO) 8.9 % (2-12); NEUTROPHILS # (AUTO) 7.8 X10'3 (1.8-7.7); PLATELET COUNT 796 X10'3 (140-440); RED BLOOD COUNT 4.35 X10'6 (4.20-5.60); RED CELL DISTRIBUTION WIDTH 18.3 % (11.5-14.5); WHITE BLOOD COUNT 12.8 X10'3 (4.5-11.0)
[2017-12-26 06:00] VITALS: BP 97/58
[2017-12-26] MEDS: morphine 2 MG/ML inj. syringe IV PRN ×4 (06:02→23:10)
[2017-12-26 06:47] LABS: ALANINE AMINOTRANSFERASE 16 U/L (12-78); ALBUMIN 2.4 G/DL (3.4-5.0); ALBUMIN/GLOBULIN RATIO 0.5 (1.1-1.5); ALKALINE PHOSPHATASE 97 IU/L (46-116); ANION GAP 7 (8-16); ASPARTATE AMINO TRANSFERASE 19 U/L (10-37); BILIRUBIN,TOTAL 0.4 MG/DL (0.1-1.0); BLOOD UREA NITROGEN 15 MG/DL (7-18); BUN/CREATININE RATIO 15.6 (6.6-38.0); CHLORIDE 97 MMOL/L (99-107); CREATININE 0.96 MG/DL (0.40-0.90); GLUCOSE 99 MG/DL (70-104); POTASSIUM 3.3 MMOL/L (3.5-5.1); SODIUM 139 MMOL/L (135-145); TOTAL CARBON DIOXIDE 35.5 MMOL/L (24-32); eGFR 57 ML/MIN
[2017-12-26 07:37] LABS: ANISOCYTOSIS 2+; ELLIPTOCYTES FEW; PLATELET ESTIMATE INCREASED; TARGET CELLS FEW
[2017-12-26] MEDS: K and/or MAG REPLACEMENT MC SCH (08:00)
[2017-12-26] MEDS: budesonide 0.5mg/2ml UD nebule IH SCH ×2 (08:25→19:51)
[2017-12-26] MEDS: pantoprazole 40mg Tablet.DR PO SCH (09:07)
[2017-12-26] MEDS: diltiazem CD 180mg cap (once-daily) PO SCH (09:07)
[2017-12-26] MEDS: docusate sod 100mg capsule PO SCH ×2 (09:07→21:10)
[2017-12-26] MEDS: metoprolol tartrate 12.5mg (1/2 tablet) PO SCH ×2 (09:08→21:10)
[2017-12-26] MEDS: aspirin 81mg tablet.DR PO SCH (09:08)
[2017-12-26] MEDS: digoxin 250mcg (0.25mg) tablet PO SCH (09:08)
[2017-12-26] MEDS: lactobacillus rhamnosus 10,000 MMU CELLS/CAPSULE PO SCH ×2 (09:09→21:10)
[2017-12-26] MEDS: famotidine 20mg tablet PO SCH (09:09)
[2017-12-26] MEDS: morphine ER 15mg tablet PO SCH ×2 (09:09→21:11)
[2017-12-26] MEDS: pravastatin 40mg tablet PO SCH (09:09)
[2017-12-26 09:10] VITALS: BP 113/75
[2017-12-26 10:00] VITALS: BP 113/75
[2017-12-26 18:00] VITALS: BP 129/50
[2017-12-26] MEDS: montelukast 10mg tablet PO SCH (21:10)
[2017-12-26] MEDS: rivaroxaban 20mg tablet PO SCH (21:11)
[2017-12-26 22:00] VITALS: BP 120/60
[2017-12-26] MEDS: traZODone 50mg tablet PO SCH (22:07)
[2017-12-27] MEDS: ceFAZolin 1GM/D5W- ADD-VANTAGE 50 ML IV SCH ×3 (01:27→16:27)
[2017-12-27] MEDS: HYDROcodone/acetaminophen 10/325mg tab PO PRN ×4 (02:15→22:11)
[2017-12-27] MEDS: cyclobenzaprine 10mg tablet PO PRN ×2 (03:08→20:31)
[2017-12-27] MEDS: morphine 2 MG/ML inj. syringe IV PRN ×2 (04:19→13:47)
[2017-12-27 06:00] VITALS: BP 98/46
[2017-12-27 06:50] LABS: BASOPHILS # (AUTO) 0.1 X10'3 (0-0.2); BASOPHILS % (AUTO) 0.7 % (0-1); EOSINOPHILS # (AUTO) 0.6 X10'3 (0-0.9); EOSINOPHILS % (AUTO) 5.1 % (0-6); HEMATOCRIT 33.2 % (35.0-45.0); HEMOGLOBIN 10.5 g/dl (12.0-16.0); LYMPHOCYTES # (AUTO) 2.8 X10'3 (1.1-4.8); LYMPHOCYTES % (AUTO) 21.6 % (21-51); MEAN CORPUSCULAR HEMOGLOBIN 23.9 PG (27.0-31.0); MEAN CORPUSCULAR HGB CONC 31.7 % (33.0-36.5); MEAN CORPUSCULAR VOLUME 75.3 FL (78-98); MEAN PLATELET VOLUME 7.5 FL (7.4-10.4); MONOCYTES # (AUTO) 0.6 X10'3 (0-0.9); NEUTROPHILS # (AUTO) 8.6 X10'3 (1.8-7.7); NEUTROPHILS % (AUTO) 67.6 % (42-75); PLATELET COUNT 750 X10'3 (140-440); RED CELL DISTRIBUTION WIDTH 18.6 % (11.5-14.5); WHITE BLOOD COUNT 12.8 X10'3 (4.5-11.0)
[2017-12-27 07:04] LABS: ANISOCYTOSIS 2+; ELLIPTOCYTES 1+; HYPOCHROMASIA 1+; MICROCYTOSIS 1+; PLATELET ESTIMATE INCREASED; POLYCHROMASIA 1+; TARGET CELLS FEW
[2017-12-27 07:05] LABS: SCHISTOCYTES FEW
[2017-12-27 07:07] LABS: ALANINE AMINOTRANSFERASE 10 U/L (12-78); ALBUMIN 2.4 G/DL (3.4-5.0); ALBUMIN/GLOBULIN RATIO 0.5 (1.1-1.5); ALKALINE PHOSPHATASE 101 IU/L (46-116); ANION GAP 5 (8-16); ASPARTATE AMINO TRANSFERASE 24 U/L (10-37); BILIRUBIN,TOTAL 0.3 MG/DL (0.1-1.0); BLOOD UREA NITROGEN 14 MG/DL (7-18); BUN/CREATININE RATIO 16.3 (6.6-38.0); CALCIUM 9.3 MG/DL (8.5-10.1); CHLORIDE 98 MMOL/L (99-107); CREATININE 0.86 MG/DL (0.40-0.90); GLUCOSE 108 MG/DL (70-104); POTASSIUM 3.5 MMOL/L (3.5-5.1); SODIUM 137 MMOL/L (135-145); TOTAL CARBON DIOXIDE 34.1 MMOL/L (24-32); TOTAL PROTEIN 6.9 G/DL (6.4-8.2); eGFR 65 ML/MIN
[2017-12-27] MEDS: budesonide 0.5mg/2ml UD nebule IH SCH ×2 (07:52→19:52)
[2017-12-27] MEDS: K and/or MAG REPLACEMENT MC SCH (08:00)
[2017-12-27] MEDS: docusate sod 100mg capsule PO SCH ×2 (08:36→20:31)
[2017-12-27] MEDS: famotidine 20mg tablet PO SCH (08:36)
[2017-12-27] MEDS: diltiazem CD 180mg cap (once-daily) PO SCH (08:37)
[2017-12-27] MEDS: lactobacillus rhamnosus 10,000 MMU CELLS/CAPSULE PO SCH ×2 (08:37→20:31)
[2017-12-27] MEDS: aspirin 81mg tablet.DR PO SCH (08:37)
[2017-12-27] MEDS: morphine ER 15mg tablet PO SCH ×2 (08:37→20:31)
[2017-12-27] MEDS: metoprolol tartrate 12.5mg (1/2 tablet) PO SCH ×2 (08:37→20:31)
[2017-12-27] MEDS: digoxin 250mcg (0.25mg) tablet PO SCH (08:38)
[2017-12-27] MEDS: pantoprazole 40mg Tablet.DR PO SCH (08:40)
[2017-12-27] MEDS: pravastatin 40mg tablet PO SCH (08:40)
[2017-12-27 10:00] VITALS: BP 105/57
[2017-12-27 17:00] VITALS: BP_SYST 111; BP_SYST 112; BP_SYST 136; BP_DIAS 49; BP_DIAS 53; BP_DIAS 63
[2017-12-27 18:00] VITALS: BP 111/53
[2017-12-27 20:00] VITALS: BP 109/48
[2017-12-27] MEDS: rivaroxaban 20mg tablet PO SCH (20:31)
[2017-12-27] MEDS: montelukast 10mg tablet PO SCH (20:31)
[2017-12-27 21:23] LABS: % IRON SATURATION 5 % (11-46); IRON 20 UG/DL (49-151); TOTAL IRON BINDING CAPACITY 396 UG/DL (259-388)
[2017-12-27 22:00] VITALS: BP 109/48
[2017-12-27] MEDS: traZODone 50mg tablet PO SCH (22:11)
[2017-12-28] MEDS: ceFAZolin 1GM/D5W- ADD-VANTAGE 50 ML IV SCH (00:08)
[2017-12-28 01:42] VITALS: BP_SYST 106; BP_SYST 122; BP_SYST 136; BP_DIAS 48; BP_DIAS 69; BP_DIAS 70
[2017-12-28] MEDS: HYDROcodone/acetaminophen 10/325mg tab PO PRN ×2 (05:27→10:50)
[2017-12-28] MEDS: cyclobenzaprine 10mg tablet PO PRN (05:27)
[2017-12-28 06:00] VITALS: BP 112/32
[2017-12-28 07:18] LABS: ALANINE AMINOTRANSFERASE 11 U/L (12-78); ALBUMIN 2.3 G/DL (3.4-5.0); ALBUMIN/GLOBULIN RATIO 0.5 (1.1-1.5); ALKALINE PHOSPHATASE 107 IU/L (46-116); ANION GAP 4 (8-16); ASPARTATE AMINO TRANSFERASE 26 U/L (10-37); BILIRUBIN,TOTAL 0.3 MG/DL (0.1-1.0); BLOOD UREA NITROGEN 15 MG/DL (7-18); BUN/CREATININE RATIO 19.2 (6.6-38.0); CALCIUM 8.9 MG/DL (8.5-10.1); CHLORIDE 97 MMOL/L (99-107); CREATININE 0.78 MG/DL (0.40-0.90); GLUCOSE 108 MG/DL (70-104); POTASSIUM 3.3 MMOL/L (3.5-5.1); SODIUM 136 MMOL/L (135-145); TOTAL PROTEIN 6.9 G/DL (6.4-8.2); eGFR 73 ML/MIN
[2017-12-28 07:38] LABS: HEMATOCRIT 32.7 % (35.0-45.0); HEMOGLOBIN 10.3 g/dl (12.0-16.0); MEAN CORPUSCULAR HEMOGLOBIN 23.6 PG (27.0-31.0); MEAN CORPUSCULAR HGB CONC 31.4 % (33.0-36.5); MEAN CORPUSCULAR VOLUME 75.2 FL (78-98); MEAN PLATELET VOLUME 7.6 FL (7.4-10.4); PLATELET COUNT 748 X10'3 (140-440); RED BLOOD COUNT 4.35 X10'6 (4.20-5.60); RED CELL DISTRIBUTION WIDTH 18.5 % (11.5-14.5); WHITE BLOOD COUNT 11.3 X10'3 (4.5-11.0)
[2017-12-28 07:48] LABS: PLATELET ESTIMATE INCREASED; TOTAL CELLS COUNTED 100
[2017-12-28 07:49] LABS: ANISOCYTOSIS 2+; ELLIPTOCYTES 1+; HYPOCHROMASIA 1+; MICROCYTOSIS 1+; POLYCHROMASIA 1+; SCHISTOCYTES FEW; TARGET CELLS FEW
[2017-12-28] MEDS: metoprolol tartrate 12.5mg (1/2 tablet) PO SCH (08:00)
[2017-12-28] MEDS: K and/or MAG REPLACEMENT MC SCH (08:00)
[2017-12-28] MEDS: diltiazem CD 180mg cap (once-daily) PO SCH (08:00)
[2017-12-28] MEDS ORDERED: potassium Cl 40MEQ/NS 500ml 500 ML IV PRN ×2 (08:20)
[2017-12-28] MEDS ORDERED: potassium Cl 20 mEq SR tablet PO PRN ×2 (08:20)
[2017-12-28] MEDS: pantoprazole 40mg Tablet.DR PO SCH (08:26)
[2017-12-28] MEDS: lactobacillus rhamnosus 10,000 MMU CELLS/CAPSULE PO SCH (08:26)
[2017-12-28] MEDS: aspirin 81mg tablet.DR PO SCH (08:26)
[2017-12-28] MEDS: docusate sod 100mg capsule PO SCH (08:26)
[2017-12-28] MEDS: digoxin 250mcg (0.25mg) tablet PO SCH (08:26)
[2017-12-28] MEDS: pravastatin 40mg tablet PO SCH (08:27)
[2017-12-28] MEDS: famotidine 20mg tablet PO SCH (08:27)
[2017-12-28] MEDS: morphine ER 15mg tablet PO SCH (08:27)
[2017-12-28] MEDS: budesonide 0.5mg/2ml UD nebule IH SCH (08:33)
[2017-12-28 10:00] VITALS: BP 115/60
[2017-12-28] MEDS ORDERED: furosemide 20MG tablet PO SCH (10:20)
[2017-12-28] MEDS ORDERED: potassium Cl 20 mEq SR tablet PO STA (13:19)
[2017-12-29] MEDS ORDERED: potassium chloride 8mEq ER tablet PO SCH (08:00)
== END 2017-12-28 14:45 | DRG 871 ==
LOC: ER 20:46 → ED HOLD 23:17 → EDBEDREQ 12-25 13:31 → ORTHO 4S 12-25 14:25
PROVIDERS: ADMIT Family Medicine; ATTEND Internal Medicine
DX: A41.9 Sepsis, unspecified organism (principal); I50.33 Acute on chronic diastolic (congestive) heart failure; L03.115 Cellulitis of right lower limb; L03.116 Cellulitis of left lower limb; R55 Syncope and collapse; E78.00 Pure hypercholesterolemia, unspecified; I11.0 Hypertensive heart disease with heart failure; G89.29 Other chronic pain; I35.0 Nonrheumatic aortic (valve) stenosis; I48.2 Chronic atrial fibrillation; Z60.2 Problems related to living alone; M54.9 Dorsalgia, unspecified; D64.9 Anemia, unspecified; E87.6 Hypokalemia; E11.9 Type 2 diabetes mellitus without complications; W18.39XA Other fall on same level, initial encounter; E78.5 Hyperlipidemia, unspecified; I25.10 Atherosclerotic heart disease of native coronary artery without angina pectoris; J44.9 Chronic obstructive pulmonary disease, unspecified; Z90.49 Acquired absence of other specified parts of digestive tract; Z90.710 Acquired absence of both cervix and uterus; Z88.8 Allergy status to other drugs, medicaments and biological substances; Z79.899 Other long term (current) drug therapy; Z79.82 Long term (current) use of aspirin; Z87.440 Personal history of urinary (tract) infections; Z87.01 Personal history of pneumonia (recurrent); Z86.73 Personal history of transient ischemic attack (TIA), and cerebral infarction without residual deficits; Z87.891 Personal history of nicotine dependence; Y93.89 Activity, other specified; Y92.89 Other specified places as the place of occurrence of the external cause; Y99.8 Other external cause status
CPT/HCPCS: 36415; 70450; 71045; 80053; 80162; 80305; 80329; 81003; 82550; 82948; 83036; 83540; 83550; 83605; 83735; 83880; 84100; 84132; 84443; 84484; 85025; 85610; 85730; 87040; 87070; 93005; 93306; 93880; 94640; 94760; 97116; 97161; 97530; 99285; A6212; J0690; J2270; J3480; J7626